=== PATIENT | female | born 1940 | race Caucasian/White ===

== ENCOUNTER → 2023-12-22 13:50 | Outpatient (REF) | payer MEDICARE, SELFPAY ==
[2023-12-22 15:40] LABS: Hematocrit 38.1 % (37.0-47.0); Hemoglobin 12.7 g/dL (12.0-16.0); Mean Corp Hgb Conc. 33.3 g/dL (33.0-37.0); Mean Corpuscular Hgb 31.9 pg (27.0-31.0); Mean Corpuscular Volume 95.7 fL (81.0-99.0); Mean Platelet Volume 9.9 fL (7.4-10.4); Platelet Count 212 10^3/uL (130-400); Red Blood Cell Count 3.98 10^6/uL (4.20-5.40); Red Cell Dist. Width 14.8 % (11.5-14.5); White Blood Cell Count 12.8 10^3/uL (4.8-10.8)
[2023-12-22 15:49] LABS: ALT (SGPT) 130 U/L (0-35); AST (SGOT) 74 U/L (14-36); Albumin 3.3 g/dl (3.5-5.0); Alkaline Phosphatase 452 U/L (38-126); Blood Urea Nitrogen 34 mg/dl (7-17); Calcium 9.1 mg/dl (8.4-10.2); Carbon Dioxide 26 mmol/L (22-30); Chloride 104 mmol/L (98-107); Glucose 99 mg/dl (70-99); Sodium 138 mmol/L (135-145); Total Bilirubin 2.4 mg/dl (0.2-1.3); Total Protein 5.7 g/dl (6.3-8.2); eGFR > 60.00
[2023-12-22 16:30] LABS: TSH 0.64 uIU/ml (0.47-4.68)
== END ==
LOC: OLABMERCHI 13:50
PROVIDERS: ATTENDING PHYSICIAN Nurse Practitioner Gerontology; FAMILY PHYSICIAN Hospitalist
DX: N39.0 Urinary tract infection, site not specified (principal); D64.9 Anemia, unspecified; R94.4 Abnormal results of kidney function studies; G03.9 Meningitis, unspecified
CPT/HCPCS: 36415; 80053; 84439; 84443; 85027

== ENCOUNTER → 2023-12-29 09:27 | Outpatient (REF) | payer MEDICARE, SELFPAY ==
[2023-12-29 11:19] LABS: Ammonia 10 umol/L (9-30)
[2023-12-29 11:40] LABS: ALT (SGPT) 160 U/L (0-35); AST (SGOT) 103 U/L (14-36); Albumin 3.2 g/dl (3.5-5.0); Alkaline Phosphatase 841 U/L (38-126); Blood Urea Nitrogen 18 mg/dl (7-17); Calcium 8.9 mg/dl (8.4-10.2); Carbon Dioxide 27 mmol/L (22-30); Chloride 102 mmol/L (98-107); Glucose 97 mg/dl (70-99); Potassium 3.4 mmol/L (3.5-5.1); Sodium 136 mmol/L (135-145); Total Bilirubin 2.2 mg/dl (0.2-1.3); Total Protein 5.9 g/dl (6.3-8.2); eGFR > 60.00
== END ==
LOC: OLABMERCHI 09:27
PROVIDERS: ATTENDING PHYSICIAN Nurse Practitioner Gerontology; FAMILY PHYSICIAN Hospitalist
DX: R94.4 Abnormal results of kidney function studies (principal); R94.5 Abnormal results of liver function studies
CPT/HCPCS: 36415; 80053; 82140

== ENCOUNTER → 2024-02-02 11:53 | Outpatient (REF) | payer MEDICARE, SELFPAY ==
[2024-02-02 12:49] LABS: % Basophils 0.4 % (0-2); % Eosinophils 2.4 % (0-6); % Immature Granulocytes 1.2 % (0-0.5); % Lymphocytes 20.8 % (20.5-51.1); % Monocytes 10.1 % (1.7-9.3); % Neutrophils 65.1 % (42.2-75.2); Absolute Eosinophils 0.2 10^3/uL (0-0.7); Absolute Immature Granulocytes 0.1 10^3/uL (0-0.05); Absolute Lymphocytes 1.7 10^3/uL (1.2-3.4); Absolute Monocytes 0.8 10^3/uL (0.1-0.6); Absolute Neutrophils 5.4 10^3/uL (1.4-6.5); Hematocrit 39.2 % (37.0-47.0); Hemoglobin 12.8 g/dL (12.0-16.0); Mean Corp Hgb Conc. 32.7 g/dL (33.0-37.0); Mean Corpuscular Hgb 31.2 pg (27.0-31.0); Mean Corpuscular Volume 95.6 fL (81.0-99.0); Mean Platelet Volume 10.9 fL (7.4-10.4); Nucleated Red Blood Cells % 0 %; Platelet Count 221 10^3/uL (130-400); Red Cell Dist. Width 15.1 % (11.5-14.5); White Blood Cell Count 8.2 10^3/uL (4.8-10.8)
[2024-02-02 13:25] LABS: ALT (SGPT) 44 U/L (0-35); AST (SGOT) 41 U/L (14-36); Albumin 3.2 g/dl (3.5-5.0); Alkaline Phosphatase 780 U/L (38-126); Blood Urea Nitrogen 10 mg/dl (7-17); Calcium 8.9 mg/dl (8.4-10.2); Carbon Dioxide 30 mmol/L (22-30); Chloride 101 mmol/L (98-107); Glucose 110 mg/dl (70-99); Potassium 3.8 mmol/L (3.5-5.1); Sodium 138 mmol/L (135-145); Total Bilirubin 1.4 mg/dl (0.2-1.3); eGFR > 60.00
== END ==
LOC: OLABMERCHI 11:53
PROVIDERS: ATTENDING PHYSICIAN Nurse Practitioner Gerontology; FAMILY PHYSICIAN Hospitalist
DX: R94.4 Abnormal results of kidney function studies (principal)
CPT/HCPCS: 36415; 80053; 85025

== ENCOUNTER → 2024-02-16 10:28 | Outpatient (REF) | payer MEDICARE, SELFPAY ==
[2024-02-16 11:56] LABS: ALT (SGPT) 28 U/L (0-35); AST (SGOT) 38 U/L (14-36); Alkaline Phosphatase 265 U/L (38-126); Blood Urea Nitrogen 12 mg/dl (7-17); Calcium 8.9 mg/dl (8.4-10.2); Carbon Dioxide 27 mmol/L (22-30); Chloride 104 mmol/L (98-107); Glucose 93 mg/dl (70-99); Potassium 3.5 mmol/L (3.5-5.1); Sodium 138 mmol/L (135-145); Total Bilirubin 0.9 mg/dl (0.2-1.3); Total Protein 5.2 g/dl (6.3-8.2); eGFR > 60.00
== END ==
LOC: OLABMERCHI 10:28
PROVIDERS: ATTENDING PHYSICIAN Hospitalist
DX: R74.01 Elevation of levels of liver transaminase levels (principal)
CPT/HCPCS: 36415; 80053

== ENCOUNTER → 2024-11-29 09:44 | Outpatient (REF) | payer MEDICARE, SELFPAY ==
[2024-11-29 11:44] LABS: % Basophils 0.5 % (0-2); % Eosinophils 2.5 % (0-6); % Immature Granulocytes 0.2 % (0-0.5); % Lymphocytes 31.4 % (20.5-51.1); % Monocytes 10.9 % (1.7-9.3); % Neutrophils 54.5 % (42.2-75.2); Absolute Eosinophils 0.1 10^3/uL (0-0.7); Absolute Lymphocytes 1.4 10^3/uL (1.2-3.4); Absolute Monocytes 0.5 10^3/uL (0.1-0.6); Absolute Neutrophils 2.4 10^3/uL (1.4-6.5); Hematocrit 40.6 % (37.0-47.0); Hemoglobin 13.6 g/dL (12.0-16.0); Mean Corp Hgb Conc. 33.5 g/dL (33.0-37.0); Mean Corpuscular Hgb 32.9 pg (27.0-31.0); Mean Corpuscular Volume 98.3 fL (81.0-99.0); Mean Platelet Volume 10.2 fL (7.4-10.4); Nucleated Red Blood Cells % 0 %; Platelet Count 87 10^3/uL (130-400); Red Blood Cell Count 4.13 10^6/uL (4.20-5.40); Red Cell Dist. Width 12.6 % (11.5-14.5); White Blood Cell Count 4.4 10^3/uL (4.8-10.8)
[2024-11-29 11:55] LABS: ALT (SGPT) 17 U/L (0-35); AST (SGOT) 21 U/L (14-36); Albumin 3.2 g/dl (3.5-5.0); Alkaline Phosphatase 93 U/L (38-126); Blood Urea Nitrogen 14 mg/dl (7-17); Carbon Dioxide 31 mmol/L (22-30); Chloride 108 mmol/L (98-107); Glucose 93 mg/dl (70-99); HDL Cholesterol 44 mg/dl; Iron 92 ug/dl (37-170); LDL Cholesterol, Calculated 70 mg/dl; Magnesium 2.3 mg/dl (1.6-2.3); Potassium 4.3 mmol/L (3.5-5.1); Sodium 143 mmol/L (135-145); Total Bilirubin 0.6 mg/dl (0.2-1.3); Total Cholesterol 136 mg/dl (50-199); Total Protein 5.3 g/dl (6.3-8.2); Triglyceride 113 mg/dl (10-149); Very Low Density Lipoprotein 22 mg/dl (0-30); eGFR > 60.00
[2024-11-29 12:03] LABS: NT-proBNP 252 pg/ml
[2024-11-29 12:07] LABS: Vitamin D, 25-OH*** 40.4 ng/mL (30-80)
[2024-11-29 12:21] LABS: TSH 1.26 uIU/ml (0.47-4.68)
[2024-11-29 12:40] LABS: Vitamin B12 323 pg/ml (239-931)
[2024-11-29 13:34] LABS: Glycohemoglobin (HgbA1c) 5.4 % (4.0-5.6)
== END ==
LOC: OLABMERCHI 09:44
PROVIDERS: ATTENDING PHYSICIAN Hospitalist
DX: I10 Essential (primary) hypertension (principal); Z79.899 Other long term (current) drug therapy; K30 Functional dyspepsia; J44.9 Chronic obstructive pulmonary disease, unspecified; E78.5 Hyperlipidemia, unspecified; E61.1 Iron deficiency; K44.9 Diaphragmatic hernia without obstruction or gangrene; F32.0 Major depressive disorder, single episode, mild; F03.90 Unspecified dementia, unspecified severity, without behavioral disturbance, psychotic disturbance, mood disturbance, and anxiety; R32 Unspecified urinary incontinence; Z91.81 History of falling; R26.2 Difficulty in walking, not elsewhere classified
CPT/HCPCS: 36415; 80053; 80061; 82306; 82607; 83036; 83540; 83735; 83880; 84443; 85025

== ENCOUNTER 2024-12-17 09:41 | Emergency (ER) | payer MEDICARE, SELFPAY ==
[2024-12-17 10:00] VITALS: BP 145/75
[2024-12-17 10:01] LABS: % Basophils 0.4 % (0-2); % Eosinophils 0.9 % (0-6); % Immature Granulocytes 0.5 % (0-0.5); % Lymphocytes 15.8 % (20.5-51.1); % Monocytes 8.2 % (1.7-9.3); % Neutrophils 74.2 % (42.2-75.2); Absolute Eosinophils 0.1 10^3/uL (0-0.7); Absolute Lymphocytes 1.2 10^3/uL (1.2-3.4); Absolute Monocytes 0.6 10^3/uL (0.1-0.6); Absolute Neutrophils 5.7 10^3/uL (1.4-6.5); Hematocrit 43.5 % (37.0-47.0); Mean Corp Hgb Conc. 34.5 g/dL (33.0-37.0); Mean Corpuscular Hgb 33.2 pg (27.0-31.0); Mean Corpuscular Volume 96.2 fL (81.0-99.0); Mean Platelet Volume 8.3 fL (7.4-10.4); Nucleated Red Blood Cells % 0 %; Platelet Count 175 10^3/uL (130-400); Red Blood Cell Count 4.52 10^6/uL (4.20-5.40); Red Cell Dist. Width 12.7 % (11.5-14.5); White Blood Cell Count 7.7 10^3/uL (4.8-10.8)
--- NOTE | 2024-12-17 10:11 | ED.GENMED ---
History of Present Illness
General
Chief Complaint: Fall
Source: patient
Exam Limitations: none
Time Seen by Provider: 12/17/24 09:57
History of Present Illness
History of Present Illness:
84-year-old female presents from [facility] via EMS after an unwitnessed fall. She lives in a dementia unit. She denies any injury from the fall. She is not sure what happened. She currently denies any headache neck pain chest pain abdominal
pain or shortness of breath. No other complaints
Phy Exam
Physical Exam
Physical Exam:
General: Well-appearing female no acute respiratory distress
HEENT: Normocephalic atraumatic
Heart: Regular rate and rhythm
Lungs: Clear no wheeze
Musculoskeletal exam: The spine is nontender
Abdomen is soft nontender nondistended no guarding or rebound
Extremities: No cyanosis
Course
Orders/Labs/Results
Orders:
Orders
12/17/24 09:49
CRP [C-Reactive Protein] Urgent
Complete Blood Count/With Diff Urgent
Comprehensive Metabolic Panel Urgent
Creatine Phosphokinase Urgent
12/17/24 10:11
CT Head W/o Iv Contrast Urgent
Comment:
Reason For Exam: fall
12/17/24 10:13
Add On- LAB Urgent
Tests Added?: cpk
Abnormal Lab Results
12/17/24
09:49
MCH 33.2 H pg
(27.0-31.0)
Lymphocytes % 15.8 L %
(20.5-51.1)
Creatinine 0.5 L mg/dL
(0.6-1.0)
Glucose 112 H mg/dl
(70-99)
Total Protein 6.0 L g/dl
(6.3-8.2)
12/17/24 09:49
12/17/24 09:49
Vital Signs
Initial and Last Documented VS:
Initial Vital Signs
Pulse Ox
93
12/17/24 09:48
Last Documented Vital Signs
Temp Pulse Resp BP Pulse Ox
97.7 F 59 16 145/75 94
12/17/24 10:14 12/17/24 10:14 12/17/24 10:14 12/17/24 10:14 12/17/24 10:14
MDM/Problems Addressed
Differential Diagnosis Includes:
Unwitnessed fall from assisted. No apparent injury. Patient does not recall event. Basic labs pending CT head pending.
*Critical Care Note
Total Time (30-74mins, 75-104mins- exclusive of procedures): Not Applicable
Update Note
Update Note:
Workup shows negative CAT scan. Labs reviewed without significant finding. Family now in the room. No indication for admission. Daughter willing to take her back to [facility].
ED Attending Note
-
Portions of this chart may have been created with voice recognition software.� Occasional wrong word or��sound alike� substitutions may have occurred due to the inherent limitations of voice recognition software.
Discharge Plan
Departure
Patient Disposition: Home (Routine Discharge)
Date of Disposition: 12/17/24
Time of Disposition: 11:12
Patient with high blood pressure during this ER visit?: No
Discharge Problem:
Fall
Instructions: Preventing falls - ED discharge instructions
Prescriptions:
No Action
carvedilol 12.5 mg Tablet
12.5 mg PO BID
famotidine 40 mg Tablet
40 mg PO DAILY
omeprazole 40 mg Capsule,Delayed Release(Dr/Ec)
40 mg PO DAILY
acetaminophen 500 mg Tablet
1,000 mg PO BID
simvastatin 20 mg Tablet
20 mg PO DAILY
ferrous sulfate 325 mg (65 mg iron) Tablet
325 mg PO DAILY
furosemide 20 mg Tablet
20 mg PO DAILY
Trelegy Ellipta 200-62.5-25 mcg Blister With Device
1 inh INHALATION DAILY
Referrals:
Leslie Sanchez, [Family Provider] -
Activity Restrictions/Additional Instructions:
Please return here if needed
Interventions
Interventions:
*Risk Screen - Suicide Last Done: 12/17/24 10:14
*General Assessment Last Done: 12/17/24 10:14
*Neglect/Abuse Screening Last Done: 12/17/24 10:14
*ED- Fall Risk Assessment Last Done: 12/17/24 10:14
*ED COVID-19 Vaccine History Last Done: 12/17/24 10:14
ED-Musculoskeletal Assessment Last Done: 12/17/24 10:14
ED- Neurological Assessment Last Done: 12/17/24 10:14
ED-Skin Assessment Last Done: 12/17/24 10:14
Discharge Date and Time
Print Language: MACEDONIAN
[2024-12-17 10:14] VITALS: BP 145/75; BMI 29.4
[2024-12-17 10:15] LABS: ALT (SGPT) 21 U/L (0-35); AST (SGOT) 25 U/L (14-36); Albumin 3.7 g/dl (3.5-5.0); Alkaline Phosphatase 99 U/L (38-126); Blood Urea Nitrogen 16 mg/dl (7-17); Calcium 9.2 mg/dl (8.4-10.2); Carbon Dioxide 28 mmol/L (22-30); Chloride 106 mmol/L (98-107); Glucose 112 mg/dl (70-99); Potassium 4.3 mmol/L (3.5-5.1); Sodium 141 mmol/L (135-145); Total Bilirubin 0.8 mg/dl (0.2-1.3); eGFR > 60.00
[2024-12-17 10:17] LABS: C-Reactive Protein < 5.00 mg/L (0.0-10.00)
[2024-12-17 10:51] LABS: Creatine Phosphokinase 56 U/L (30-135)
== END 2024-12-17 11:43 | disposition home or self-care (01) ==
LOC: EMR 09:41
PROVIDERS: EMERGENCY PHYSICIAN Emergency Medicine; FAMILY PHYSICIAN Hospitalist
DX: Z04.3 Encounter for examination and observation following other accident (principal); W19.XXXA Unspecified fall, initial encounter
CPT/HCPCS: 99284; 70450; 80053; 82550; 85025; 86140

== ENCOUNTER 2025-05-01 07:39 | Emergency (ER) | payer MEDICARE, SELFPAY ==
[2025-05-01 07:53] VITALS: BP 145/67; BMI 31.7
[2025-05-01 08:00] VITALS: BP 147/69
--- NOTE | 2025-05-01 08:20 | ED.GENMED ---
History of Present Illness
General
Chief Complaint: Fall
Source: records
Exam Limitations: dementia
Time Seen by Provider: 05/01/25 08:13
History of Present Illness
History of Present Illness:
Unwitnessed fall. Found for an extra bed with her mattress on top of her. Initially apparently was complaining of some bilateral leg pain which is chronic and has complained of before. Currently has no specific complaints and does not know what
happened.
Past History
Past History
ED Past Medical History: HTN and Other (Dementia)
Review of Systems
Review of Systems
Unable to obtain full review of systems at this time due to: dementia
All Other Systems: Not applicable
Phy Exam
Physical Exam
Physical Exam:
TRAUMA EXAM:
VITAL SIGNS: Vital signs reviewed, cooperative
DISTRESS: No active disease
EYES: Pupils reactive, no orbital trauma
NOSE: No deformity or epistaxis
FACE AND SCALP: No scalp or facial trauma, external canals no blood
NECK: Supple nontender
BACK: Back nontender, pelvis stable to compression
RESPIRATORY: No distress, breath sounds normal, no tender chest wall
CARDIAC: No murmur, pulses equal and strong
ABDOMEN: Soft nontender bowel sounds normal
SKIN: Skin intact. Small ecchymosis to the right arm and dorsal left hand
NEUROLOGICAL: Alert, oriented to name and place. Fairly close on age, no motor deficits
PSYCH: Mood affect normal
Course
Orders/Labs/Results
Orders:
Orders
05/01/25 08:17
Cardiac Monitoring- Treatment ONCE
05/01/25 08:18
CT Cervical Spine W/o Iv Contr Urgent
Comment:
Reason For Exam: trauma
CT Head W/o Iv Contrast Urgent
Comment:
Reason For Exam: traum,a
Vital Signs
Initial and Last Documented VS:
Initial Vital Signs
Temp Pulse Resp BP Pulse Ox
98.4 F 58 19 145/67 93
05/01/25 07:53 05/01/25 07:53 05/01/25 07:53 05/01/25 07:53 05/01/25 07:53
Last Documented Vital Signs
Temp Pulse Resp BP Pulse Ox
98.4 F 77 21 137/77 95
05/01/25 07:53 05/01/25 11:00 05/01/25 11:00 05/01/25 11:00 05/01/25 11:00
MDM/Problems Addressed
Differential Diagnosis Includes:
Patient very nontoxic in no distress. Clinically stable. Highly doubt syncope. No signs of significant trauma. However given the unknown nature of what exactly occurred we will CT her head and cervical spine.
*Radiology
Radiology exam reviewed: radiology read reviewed (Negative acute findings)
*Pulse Oximetry
SaO2: 93
Oxygen Mode of Delivery: Room air
Patient hypoxic: no
*Tip Out Worker Interpretation
Rate: normal
Interpretation: normal
Heart Rate: 80
Rhythm: sinus
*Critical Care Note
Total Time (30-74mins, 75-104mins- exclusive of procedures): Not Applicable
Data Reviewed
Review of Other/Old Records Reveals: Labs, Records and Testing
Update Note
Update Note:
Patient is remained medically stable. No serious issues. Discharged to follow-up
ED Attending Note
-
Portions of this chart may have been created with voice recognition software.� Occasional wrong word or��sound alike� substitutions may have occurred due to the inherent limitations of voice recognition software.
Discharge Plan
Departure
Patient Disposition: Home (Routine Discharge)
Date of Disposition: 05/01/25
Time of Disposition: 11:20
Patient with high blood pressure during this ER visit?: Yes
Discharge Problem:
Fall, Mild contusions, Possible mild head injury
Instructions: Head Injury in Adults (DC), Contusion (DC), Preventing falls in adults
Prescriptions:
No Action
carvedilol 12.5 mg Tablet
12.5 mg PO BID
famotidine 40 mg Tablet
40 mg PO DAILY
omeprazole 40 mg Capsule,Delayed Release(Dr/Ec)
40 mg PO DAILY
acetaminophen 500 mg Tablet
1,000 mg PO BID
simvastatin 20 mg Tablet
20 mg PO DAILY
ferrous sulfate 325 mg (65 mg iron) Tablet
325 mg PO DAILY
furosemide 20 mg Tablet
20 mg PO DAILY
Trelegy Ellipta 200-62.5-25 mcg Blister With Device
1 inh INHALATION DAILY
Referrals:
JERILYN DE LA GARZA CRNP [Family Provider, Family Practice] - Follow up in 2-3 days
Interventions
Interventions:
*Risk Screen - Suicide Last Done: 05/01/25 07:53
*General Assessment Last Done: 05/01/25 07:53
*Neglect/Abuse Screening Last Done: 05/01/25 07:53
*ED- Fall Risk Assessment Last Done: 05/01/25 07:53
*ED COVID-19 Vaccine History Last Done: 05/01/25 07:53
ED-Musculoskeletal Assessment Last Done: 05/01/25 07:53
ED- Neurological Assessment Last Done: 05/01/25 07:53
ED-Skin Assessment Last Done: 05/01/25 07:53
Discharge Date and Time
Print Language: ITALIAN
[2025-05-01 10:43] VITALS: BP 154/88
[2025-05-01 11:00] VITALS: BP 137/77
--- NOTE | 2025-05-01 13:01 | EDRN ---
the pt is being discharged and transport has been arranged, this RN attempted to call [facility] at [phone] to give verbal report to receiving staff at [facility] and the frontload driver staff transferred this RN to the floor that the pt was on
and there was no answer
[2025-05-01 13:02] VITALS: BP 131/85
[2025-05-01 13:43] VITALS: BP 131/85
== END 2025-05-01 13:48 ==
LOC: EMR 07:39
PROVIDERS: EMERGENCY PHYSICIAN Emergency Medicine
DX: S40.021A Contusion of right upper arm, initial encounter (principal); S60.222A Contusion of left hand, initial encounter; F03.90 Unspecified dementia, unspecified severity, without behavioral disturbance, psychotic disturbance, mood disturbance, and anxiety; I10 Essential (primary) hypertension; M79.605 Pain in left leg; M79.604 Pain in right leg; G89.29 Other chronic pain; W19.XXXA Unspecified fall, initial encounter; Y92.099 Unspecified place in other non-institutional residence as the place of occurrence of the external cause
CPT/HCPCS: 99284; 70450; 72125

== ENCOUNTER → 2025-06-20 11:48 | Outpatient (REF) | payer MEDICARE, SELFPAY ==
[2025-06-20 12:40] LABS: ALT (SGPT) 15 U/L (0-35); AST (SGOT) 19 U/L (14-36); Albumin 3.4 g/dl (3.5-5.0); Alkaline Phosphatase 79 U/L (38-126); Blood Urea Nitrogen 16 mg/dl (7-17); Calcium 8.6 mg/dl (8.4-10.2); Carbon Dioxide 30 mmol/L (22-30); Chloride 106 mmol/L (98-107); Glucose 86 mg/dl (70-99); Potassium 4.0 mmol/L (3.5-5.1); Sodium 136 mmol/L (135-145); Total Protein 5.7 g/dl (6.3-8.2); eGFR > 60.00
[2025-06-20 12:45] LABS: Hematocrit 40.1 % (37.0-47.0); Hemoglobin 13.2 g/dL (12.0-16.0); Mean Corp Hgb Conc. 32.9 g/dL (33.0-37.0); Mean Corpuscular Volume 97.8 fL (81.0-99.0); Platelet Count 142 10^3/uL (130-400); Red Cell Dist. Width 12.6 % (11.5-14.5)
== END ==
LOC: OLABMERCHI 11:48
PROVIDERS: ATTENDING PHYSICIAN Hospitalist
DX: R41.82 Altered mental status, unspecified (principal)
CPT/HCPCS: 36415; 80053; 85027

== ENCOUNTER → 2025-06-21 11:22 | Outpatient (REF) | payer MEDICARE, SELFPAY ==
[2025-06-21 14:06] LABS: Urine Character Slightly Cloudy (Clear)
== END ==
LOC: OLABMERCHI 11:22
PROVIDERS: ATTENDING PHYSICIAN Hospitalist
DX: R41.82 Altered mental status, unspecified (principal)
CPT/HCPCS: 81003; 87077; 87086; 87186

== ENCOUNTER 2025-07-02 18:32 | Inpatient (IN) | payer MEDICARE, SELFPAY ==
[2025-07-02] VITALS (7 sets, daily range): BP systolic 133–148; BP diastolic 76–98; BMI 34.1; BMI 34.3
[2025-07-02 13:09] LABS: Hematocrit 48.0 % (37.0-47.0); Hemoglobin 16.1 g/dL (12.0-16.0); Mean Corp Hgb Conc. 33.5 g/dL (33.0-37.0); Mean Corpuscular Volume 98.0 fL (81.0-99.0); Nucleated Red Blood Cells % 0 %; Platelet Count 201 10^3/uL (130-400); Red Cell Dist. Width 13.1 % (11.5-14.5)
[2025-07-02 13:49] LABS: ALT (SGPT) 22 U/L (0-35); AST (SGOT) 26 U/L (14-36); Albumin 4.6 g/dl (3.5-5.0); Alkaline Phosphatase 91 U/L (38-126); Blood Urea Nitrogen 19 mg/dl (7-17); Calcium 9.4 mg/dl (8.4-10.2); Carbon Dioxide 31 mmol/L (22-30); Chloride 99 mmol/L (98-107); Glucose 138 mg/dl (70-99); Potassium 4.0 mmol/L (3.5-5.1); Sodium 137 mmol/L (135-145); Total Protein 7.4 g/dl (6.3-8.2); eGFR > 60.00
--- NOTE | 2025-07-02 14:56 | ED.GENMED ---
History of Present Illness
<Josh Long MD, Resident - Last Filed: 07/02/25 16:45>
General
Chief Complaint: Abdominal Symptoms
Source: patient and records (EMS)
Time Seen by Provider: 07/02/25 14:29
History of Present Illness
History of Present Illness:
Patient is an 85-year-old female with PMH of COPD, HTN, HLD, and dementia who presents to [facility] via EMS from [facility] for 2 episodes of vomiting this morning. Patient is a poor historian and does not recall vomiting. She is chronically
short of breath related to her COPD, but she has had no recent worsening. No other symptoms, including abdominal pain, nausea, chest pain, cough, wheezing, changes to bowel movements, headache, vision changes, or urinary symptoms.
Past History
<Josh Long MD, Resident - Last Filed: 07/02/25 16:45>
Past History
ED Past Medical History: COPD, HTN, Hypercholesterolemia and Other (Dementia)
Social History
Tobacco: Former smoker
Living: snf
Review of Systems
<Josh Long MD, Resident - Last Filed: 07/02/25 16:45>
Review of Systems
Constitutional: Denies fever, fatigue or chills
Respiratory: Reports trouble breathing (Chronic, no recent changes); Denies cough
Cardiac: Denies chest pain
ABD/GI: Denies abdominal pain, nausea, vomiting or diarrhea
: Denies dysuria, frequency or urgency
Neurological: Denies headache, weakness or numbness
Phy Exam
<Josh Long MD, Resident - Last Filed: 07/02/25 16:45>
Physical Exam
Physical Exam:
General: NAD. Easily communicative.
GI: Soft, nontender. Nondistended. No rigidity, guarding, or rebound tenderness. Stage II sacral pressure ulcer. Left lower abdominal intertriginous area erythema and foul odor.
CV: RRR. S1, S2 noted. No M/R/G. Bilateral lower extremity 3+ pitting edema.
Pulm: CTAB. No wheezes or crackles. No cyanosis.
Neuro: A&O x 2. Disoriented to time. No focal deficits. CN II through XII grossly intact.
Psych: Pleasant. Struggles with memory.
Course
<Josh Long MD, Resident - Last Filed: 07/02/25 16:45>
Orders/Labs/Results
Orders:
Orders
07/02/25 13:02
Complete Blood Count/With Diff Urgent
Comprehensive Metabolic Panel Urgent
07/02/25 15:24
Straight cath- Treatment ONCE
CR Obstruct Series W/pa Chest Urgent
Comment:
Reason For Exam: vomiting
07/02/25 15:38
Urinalysis Reflex To Culture Urgent
Date Specimen was Collected: 07/02/25
Time Specimen was Collected: 15:26
Urine Microscopic Reflex Cult Urgent
Urine Culture Urgent
JEREMY Source: U
Specimen Description:
Date Specimen was Collected: 07/02/25
Time Specimen was Collected: 15:26
07/02/25 16:43
CT Abd/pelvis W Iv Cont Urgent
Comment:
Reason For Exam: vomiting
07/02/25 18:04
NG Tube [GI tube insertion- Treatment] ONCE
07/02/25 18:11
Admit/Transfer Patient As Directed
Co-Sign Provider:
Level of Care: Inpatient admission
Assign to:: Medical/Surgical
Physician / Group: kristina
Diagnosis: paraesophageal hernia gastric outlet obstruction
Reason for Hospitalization: paraesophageal hernia gastric outlet obstruction
Expected length of stay greater than two midnights?: Yes
ELOS- Estimated Length of Stay in days: 2
I certify the patient meets the requirements for IP care: Yes
Code Status As Directed
Resuscitation Status: Full Code
PRN Pain Medication Management As Directed
May give lesser potent ordered pain med per pt: Yes
preference::
Protocol:: Medication orders for pain may be administered in a
manner that supports deferring to patient preference
when the pt is:
- Requesting an ordered lesser potent pain medication.
Least to most potent pain medications are defined
as: acetaminophen < NSAID < tramadol < opioids
(morphine, oxycodone, hydromorphone).
- Requesting a lesser dose of the same medication IF
ORDERED.
- Requesting a less intrusive route of administration
if both routes are prescribed by the provider (PO <
IV).
Abnormal Lab Results
07/02/25 07/02/25
13:02 15:38
WBC 13.6 H 10^3/uL
(4.8-10.8)
Hgb 16.1 H g/dL
(12.0-16.0)
Hct 48.0 H %
(37.0-47.0)
MCH 32.9 H pg
(27.0-31.0)
Abs Immat Gran (auto) 0.1 H 10^3/uL
(0-0.05)
Absolute Neuts (auto) 11.4 H 10^3/uL
(1.4-6.5)
Absolute Monos (auto) 1.0 H 10^3/uL
(0.1-0.6)
Neutrophils % 83.8 H %
(42.2-75.2)
Lymphocytes % 8.7 L %
(20.5-51.1)
Carbon Dioxide 31 H mmol/L
(22-30)
BUN 19 H mg/dl
(7-17)
Glucose 138 H mg/dl
(70-99)
Urine Ketones 3+ A
(Negative)
Ur Occult Blood Reflex 4+ A
(Negative)
Urine RBC 50-60 A /HPF
(0-2)
Urine Bacteria (Reflex) Moderate A
(Negative)
Urine Albumin (Reflex) 2+ A
(Neg - Trace)
07/02/25 13:02
07/02/25 13:02
Vital Signs
Initial and Last Documented VS:
Initial Vital Signs
Temp Pulse Resp BP Pulse Ox
98.3 F 110 16 148/98 94
07/02/25 12:53 07/02/25 12:53 07/02/25 12:53 07/02/25 12:53 07/02/25 12:53
Last Documented Vital Signs
Temp Pulse Resp BP Pulse Ox
98.3 F 92 25 140/79 94
07/02/25 12:53 07/02/25 16:00 07/02/25 16:00 07/02/25 16:00 07/02/25 18:00
<Bertram Grover, DO - Last Filed: 07/02/25 20:07>
Orders/Labs/Results
Orders:
Orders
07/02/25 13:02
Complete Blood Count/With Diff Urgent
Comprehensive Metabolic Panel Urgent
07/02/25 15:24
Straight cath- Treatment ONCE
CR Obstruct Series W/pa Chest Urgent
Comment:
Reason For Exam: vomiting
07/02/25 15:38
Urinalysis Reflex To Culture Urgent
Date Specimen was Collected: 07/02/25
Time Specimen was Collected: 15:26
Urine Microscopic Reflex Cult Urgent
Urine Culture Urgent
JEREMY Source: U
Specimen Description:
Date Specimen was Collected: 07/02/25
Time Specimen was Collected: 15:26
07/02/25 16:43
CT Abd/pelvis W Iv Cont Urgent
Comment:
Reason For Exam: vomiting
07/02/25 18:04
NG Tube [GI tube insertion- Treatment] ONCE
07/02/25 18:11
Admit/Transfer Patient As Directed
Co-Sign Provider:
Level of Care: Inpatient admission
Assign to:: Medical/Surgical
Physician / Group: kristina
Diagnosis: paraesophageal hernia gastric outlet obstruction
Reason for Hospitalization: paraesophageal hernia gastric outlet obstruction
Expected length of stay greater than two midnights?: Yes
ELOS- Estimated Length of Stay in days: 2
I certify the patient meets the requirements for IP care: Yes
Code Status As Directed
Resuscitation Status: Full Code
PRN Pain Medication Management As Directed
May give lesser potent ordered pain med per pt: Yes
preference::
Protocol:: Medication orders for pain may be administered in a
manner that supports deferring to patient preference
when the pt is:
- Requesting an ordered lesser potent pain medication.
Least to most potent pain medications are defined
as: acetaminophen < NSAID < tramadol < opioids
(morphine, oxycodone, hydromorphone).
- Requesting a lesser dose of the same medication IF
ORDERED.
- Requesting a less intrusive route of administration
if both routes are prescribed by the provider (PO <
IV).
Abnormal Lab Results
07/02/25 07/02/25
13:02 15:38
WBC 13.6 H 10^3/uL
(4.8-10.8)
Hgb 16.1 H g/dL
(12.0-16.0)
Hct 48.0 H %
(37.0-47.0)
MCH 32.9 H pg
(27.0-31.0)
Abs Immat Gran (auto) 0.1 H 10^3/uL
(0-0.05)
Absolute Neuts (auto) 11.4 H 10^3/uL
(1.4-6.5)
Absolute Monos (auto) 1.0 H 10^3/uL
(0.1-0.6)
Neutrophils % 83.8 H %
(42.2-75.2)
Lymphocytes % 8.7 L %
(20.5-51.1)
Carbon Dioxide 31 H mmol/L
(22-30)
BUN 19 H mg/dl
(7-17)
Glucose 138 H mg/dl
(70-99)
Urine Ketones 3+ A
(Negative)
Ur Occult Blood Reflex 4+ A
(Negative)
Urine RBC 50-60 A /HPF
(0-2)
Urine Bacteria (Reflex) Moderate A
(Negative)
Urine Albumin (Reflex) 2+ A
(Neg - Trace)
07/02/25 13:02
07/02/25 13:02
Vital Signs
Initial and Last Documented VS:
Initial Vital Signs
Temp Pulse Resp BP Pulse Ox
98.3 F 110 16 148/98 94
07/02/25 12:53 07/02/25 12:53 07/02/25 12:53 07/02/25 12:53 07/02/25 12:53
Last Documented Vital Signs
Temp Pulse Resp BP Pulse Ox
98.3 F 92 25 140/79 94
07/02/25 12:53 07/02/25 16:00 07/02/25 16:00 07/02/25 16:00 07/02/25 18:00
<Josh Long MD, Resident - Last Filed: 07/02/25 16:45>
MDM/Problems Addressed
Differential Diagnosis Includes:
Intertrigo
Gastroenteritis
Small bowel obstruction
MDM/Problems Addressed:
Assessment: Patient is an 85-year-old female with PMH of HTN, HLD, COPD, and dementia who presents to the [facility] via EMS from [facility] following 2 episodes of vomiting this morning, per report. Patient currently has no symptoms other
than chronic shortness of breath. No abdominal pain, nausea, diarrhea, chest pain, headache, or F/F/C. Physical exam shows bilateral lower extremity pitting edema, left lower abdominal intertriginous edema and foul smell, and stage II sacral
pressure ulcer. Tachycardic on presentation, mild leukocytosis (13.6). Workup ongoing.
Plan:
#Vomiting
Labs: CBC, CMP, UA
Imaging: Obstruction series x-ray, CTAP w/ IV contrast
<Josh Long MD, Resident - Last Filed: 07/02/25 16:45>
*Pulse Oximetry
SaO2: 96
Oxygen Mode of Delivery: Room air
Patient hypoxic: yes
*Critical Care Note
Total Time (30-74mins, 75-104mins- exclusive of procedures): Not Applicable
<Bertram Grover, - Last Filed: 07/02/25 20:07>
*Radiology
Radiology exam reviewed: radiology read reviewed (CT abdomen pelvis shows gastric outlet obstruction due to paraesophageal hiatal hernia)
ED Attending Note
<Josh Long MD, Resident - Last Filed: 07/02/25 16:45>
-
Portions of this chart may have been created with voice recognition software.� Occasional wrong word or��sound alike� substitutions may have occurred due to the inherent limitations of voice recognition software.
<Bertram Grover DO - Last Filed: 07/02/25 20:07>
ED Attending Note
Patient seen and examined by attending physician: Yes
I performed a history and physical exam of patient and discussed management with resident, I reviewed resident's note and agree with documented findings and plan of care.: Yes
ED Attending Note:
I have reviewed and agree with history treatment plan by Dr. Josh Long MD. My exam revealed 85-year-old female with mildly distended abdomen. Patient with multiple vomiting episodes today. Abdomen soft nontender. CT scan showing
paraesophageal hiatal hernia with gastric outlet obstruction. Will insert NG tube. General surgery consulted.
Discharge Plan
Departure
Patient Disposition: Admit
Date of Disposition: 07/02/25
Time of Disposition: 17:57
Admit to: Med/Surg
Presentation/result/management discussed w/ accepting MD/DO: Hospitalist
Patient with high blood pressure during this ER visit?: Yes
Condition: Fair
Discharge Problem:
Gastric outlet obstruction, Paraesophageal hiatal hernia
Interventions
Interventions:
*Risk Screen - Suicide Last Done: 07/02/25 12:53
*General Assessment Last Done: 07/02/25 14:44
*Neglect/Abuse Screening Last Done: 07/02/25 12:53
*ED- Fall Risk Assessment Last Done: 07/02/25 14:44
*ED COVID-19 Vaccine History Last Done: 07/02/25 14:47
*ED Influenza Vaccine History Last Done: 07/02/25 14:44
OJ-Uslaie-Hpioduiykp Assessment Last Done: 07/02/25 14:47
[2025-07-02 15:55] LABS: Urine Character Clear (Clear)
[2025-07-02 16:15] LABS: Urine Red Blood Cell 50-60 /HPF (0-2); Urine White Cell 0-2 /HPF (0-5)
--- NOTE | 2025-07-02 18:14 | HPS.HSE ---
Family Physician
-
Family Physician: CARINA HUMPHREY
Chief Complaint
-
vomiting
History of Present Illness
85-year-old female past medical history of COPD, hypertension, hyperlipidemia, dementia presenting for 2 episodes of vomiting this morning. She has chronic shortness of breath related to COPD which is not worse. Denies abdominal pain, chest pain,
wheezing, changes in bowels, headache, vision changes or urinary symptoms. Patient very poor historian secondary to dementia but denies any symptoms. She thinks she is at home.
Denies smoking or alcohol use.
Medical History
Past Medical History
Past Medical History: Reports Other (COPD, hypertension, hyperlipidemia, dementia)
Past Surgical History: Reports None
Social History
Tobacco: Non-smoker
Alcohol: None
Drug: None
Family History
Family History: Not pertinent
Allergies / Home Medications
Allergies reflects when Allergies were last updated in [employer].
Home Medications with original date entered in [employer]
Allergy/Medication List:
Allergies
Allergy/AdvReac Type Severity Reaction Status Date / Time
Penicillins Allergy Severe Shortness Verified 12/17/24 10:44
of Breath
Home Medications
acetaminophen 500 mg tablet 1,000 mg PO BID hip pain 12/17/24
carvedilol 12.5 mg tablet 12.5 mg PO BID 12/17/24
famotidine 40 mg tablet 40 mg PO DAILY 12/17/24
ferrous sulfate 325 mg (65 mg iron) tablet 325 mg PO DAILY 12/17/24
fluticasone fur. 200 mcg-umeclid 62.5 mcg-vilant 25 mcg inhalat.powder (Trelegy Ellipta) 1 inh inhalation DAILY 12/17/24
furosemide 20 mg tablet 20 mg PO DAILY 12/17/24
omeprazole 40 mg capsule,delayed release 40 mg PO DAILY 12/17/24
simvastatin 20 mg tablet 20 mg PO DAILY 12/17/24
Review of Systems
-
Unable to obtain full review of systems at this time due to: Dementia
A 12 point ROS was completed and negative except as noted: No
Physical Exam
Vital Signs
Vital Signs
Temp Pulse Resp BP Pulse Ox
98.3 F 92 25 140/79 93
07/02/25 12:53 07/02/25 16:00 07/02/25 16:00 07/02/25 16:00 07/02/25 17:00
Physical Exam
General: Well Developed, Well Nourished and No Apparent Distress
HEENT: NormoCephalic, Moist mucous membranes and Atraumatic
Respiratory: Clear
Cardiac: S1/S2 and Regular Rhythm; No Murmur or Rub
GI: Soft, Non Distended, Normal Bowel Sounds, Tender (diffusely ) and Distended; No Organomegaly
Rectal: Deferred by Provider
Musculoskeletal: No Clubbing, No Cyanosis and No Edema
Skin: No Rash
Neuro: Nonfocal/grossly intact
Laboratory Results
-
07/02/25 13:02
07/02/25 13:02
Laboratory Results
Total Bilirubin 1.0 mg/dl (0.2-1.3) 07/02/25 13:02
AST 26 U/L (14-36) 07/02/25 13:02
ALT 22 U/L (0-35) 07/02/25 13:02
Alkaline Phosphatase 91 U/L (38-126) 07/02/25 13:02
Data Reviewed
-
Lab Data: Labs Reviewed by me
Old Records: Reviewed
Impression/Plan
-
IMPRESSION:
PLAN:
# Large paraesophageal hiatal hernia causing gastric outlet obstruction
-CT abdomen pelvis shows large paraesophageal hiatal hernia causing gastric outlet obstruction, minimal fluid in the hiatal hernia sac,
- N.p.o.
- IV fluids
-Hold Lasix
- NG tube to be placed
- General Surgery consulted plan for surgery tomorrow or the next day
Solid mass in upper outer quadrant of right breast
- Probably right breast cancer as per CT imaging
COPD
- DuoNebs as needed
Essential hypertension
-Hold Coreg
Hyperlipidemia
- Hold statin
Dementia
Full code
DVT prophylaxis�SCDs
Heparin
--- NOTE | 2025-07-02 20:04 | EDRN ---
Attempted NG tube placement. Patient did not tolerate and began vomiting during insertion. Patient refusing further attempts. AIR BRAKE ADJUSTER notified
--- NOTE | 2025-07-02 20:59 | EDRN ---
successfully placed NG tube to Left nare. 420ml brown gastric contents out.
[2025-07-02] MEDS: DILAUDID 0.5 MG IV (21:02)
[2025-07-02] MEDS: ZOFRAN 4 MG IV (21:02)
[2025-07-02] MEDS: NSS 1000 IV (22:23)
[2025-07-02] MEDS: HEPARIN 5000 UNITS SC (22:27)
[2025-07-03 08:00] VITALS: BP 113/66
--- NOTE | 2025-07-03 08:01 | W.PN.HOSP.TC ---
Today's Communication/Plan
-
Pending NG tube suction, patient will need surgery possible early next week
Assessment / Plan
Assessment / Plan
Impression:
85-year-old female past medical history of COPD, hypertension, hyperlipidemia, dementia presenting for 2 episodes of vomiting this morning. She has chronic shortness of breath related to COPD which is not worse. Denies abdominal pain, chest pain,
wheezing, changes in bowels, headache, vision changes or urinary symptoms. Patient very poor historian secondary to dementia , CT abdomen pelvis shows large paraesophageal hiatal hernia causing gastric outlet obstruction, minimal fluid in the
hiatal hernia sac, patient kept n.p.o., surgery consulted.
Status post NG tube
Assessment/plan:
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
CT abdomen/pelvis shows large paraesophageal hiatal hernia causing gastric outlet obstruction with minimal fluid in the hernia sac.
Management:
Kepp NPO (nothing by mouth)
IV fluids
Hold Lasix
NG tube placement to suction
General Surgery consulted.
Solid Mass in Right Breast (Upper Outer Quadrant)
Imaging suggests probable right breast cancer per CT findings.
Chronic Obstructive Pulmonary Disease (COPD)
DuoNebs PRN (as needed)
Essential Hypertension
Hold Coreg for now
Hyperlipidemia
Hold statin
Dementia
At baseline.
CODE STATUS: Full code
DVT prophylaxis: Heparin
Diet: N.p.o.
Disposition: Pending NG tube suction, patient will need surgery possible early next week.
Total time spent on today's encounter was 55 minutes which included time spent in counseling the patient/family regarding diagnosis and treatment plan as listed above, goals of care, and symptom management. Case was discussed with nursing staff,
specialists, and care coordinators/case management. All labs and imaging personally reviewed by me. Remainder the time spent in detailed review of previous records, lab data, imaging, and other medical provider documentation.
Anticipated Discharge: > 48 hours
Subjective/Interval History
-
Date of Service: July 03, 2025
Patient seen and examined at bedside, NG tube in place, denies any chest pain or shortness of breath.
Objective Data
-
Labs:
Laboratory Results
07/03/25
06:00
WBC Pending
Hgb Pending
Hct Pending
Plt Count Pending
Vital Signs:
Vital Signs
Temp Pulse Resp BP Pulse Ox
98.7 F 89 18 140/77 93
07/02/25 23:35 07/02/25 23:35 07/02/25 23:35 07/02/25 23:35 07/02/25 23:35
I&O
07/02/25 07/03/25 07/04/25
06:59 06:59 06:59
Intake Total 120 / 120 90 / 90
Output Total 650 / 650
Balance -530 / -530 90 / 90
Physical Exam
-
General: Well Developed, Well Nourished, No Apparent Distress and Comfortable
HEENT: Normocephalic, Atraumatic, Moist Mucous Membranes, No Ptosis, PERRLA, Nose Appears Normal and Other (NG tube in place,)
Respiratory: Rales and Non Labored Respirations
Cardiac: Regular Rhythm and S1/S2
Breast: Deferred by me
GI: Soft, Nontender, Nondistended and Normal Bowel Sounds
Genito-urinary: No Costovertebral Tender
Musculoskeletal: No Clubbing, No Cyanosis and No Edema
Skin: Warm
Neuro: Awake, Alert, Oriented, AO x 3 and No Motor Deficits
Psych: Calm and Confused
Data Reviewed
-
Diagnostic Radiology: Image personally visualized and interpreted and Report Reviewed by me
CT Scan: Image personally visualized and interpreted and Report Reviewed by me
Ultrasound: Image personally visualized and interpreted and Report Reviewed by me
MRI: Image personally visualized and interpreted and Report Reviewed by me
Medical Tests (Nuc Med, Echo etc): Image personally visualized and interpreted and Report Reviewed by me
Labs: Labs Reviewed by me
Old Records: Reviewed
[2025-07-03] MEDS: NSS 1000 IV ×2 (08:06→17:35)
[2025-07-03] MEDS: HEPARIN 5000 UNITS SC ×2 (08:07→20:02)
[2025-07-03 08:43] LABS: Hematocrit 39.0 % (37.0-47.0); Hemoglobin 12.9 g/dL (12.0-16.0); Mean Corp Hgb Conc. 33.1 g/dL (33.0-37.0); Mean Corpuscular Volume 98.0 fL (81.0-99.0); Nucleated Red Blood Cells % 0 %; Platelet Count 178 10^3/uL (130-400); Red Cell Dist. Width 13.3 % (11.5-14.5)
--- NOTE | 2025-07-03 11:15 | CON.GS ---
Consultation
-
Date/Time Consultation Requested: 07/02/2025 10 PM
Date/Time Consultation Performed: 07/03/2025 9 AM
Requesting Provider: Hospitalist
Performing Provider: Dr. Baker
Reason for Consultation: Hiatal hernia
Medical History
-
Chief Complaint: nausea vomiting.
History of Present Illness:
This is an 85-year-old female with a history of COPD, hypertension, dementia presenting with 2 episodes of vomiting yesterday along with some shortness of breath. Physical exam was fairly unremarkable and her blood work was also reassuring. A CT
scan demonstrated a large hiatal hernia with organoaxial volvulus and a corresponding gastric outlet obstruction. An NG tube was eventually placed successfully.
Past Medical History
Past Medical History: Other
Past Surgical History: None
Social History
Tobacco: Non-Smoker
Alcohol: None
Allergies / Home Medications
Allergy/AdvReac Type Severity Reaction Status Date / Time
Penicillins Allergy Shortness Verified 07/02/25 20:58
of Breath
�Medication �Instructions �Recorded �Confirmed �Type
acetaminophen 500 mg tablet 1,000 mg PO BID hip pain 12/17/24 05/01/25 History
carvedilol 12.5 mg tablet 12.5 mg PO BID Blood Pressure 12/17/24 05/01/25 History
famotidine 40 mg tablet 40 mg PO DAILY Gastrointestinal 12/17/24 05/01/25 History
Issue
ferrous sulfate 325 mg (65 mg 325 mg PO DAILY Supplement 12/17/24 05/01/25 History
iron) tablet
fluticasone fur. 200 mcg-umeclid 1 inh inhalation DAILY 12/17/24 05/01/25 History
62.5 mcg-vilant 25 mcg Lung/Breathing Issues
inhalat.powder (Trelegy Ellipta)
furosemide 20 mg tablet 20 mg PO DAILY Fluid 12/17/24 05/01/25 History
Retention/Swelling
omeprazole 40 mg capsule,delayed 40 mg PO DAILY GERD 12/17/24 05/01/25 History
release
simvastatin 20 mg tablet 20 mg PO DAILY High Cholesterol 12/17/24 05/01/25 History
Review of Systems
-
A 10 point review of systems was completed, and was negative except as per HPI.
Physical Exam
Vital Signs
Temp Pulse Resp BP Pulse Ox
97.1 F 89 16 113/66 94
07/03/25 08:00 07/03/25 08:00 07/03/25 08:00 07/03/25 08:00 07/03/25 08:00
07/02/25 07/03/25 07/04/25
06:59 06:59 06:59
Actual Weight 84.935 kg
Body Mass Index (BMI) 34.3
Lab Results
07/03/25 08:28
07/02/25 13:02
WBC 8.6 10^3/uL (4.8-10.8) 07/03/25 08:28
Hgb 12.9 g/dL (12.0-16.0) 07/03/25 08:28
Hct 39.0 % (37.0-47.0) 07/03/25 08:28
Plt Count 178 10^3/uL (130-400) 07/03/25 08:28
Abs Immat Gran (auto) 0.0 10^3/uL (0-0.05) 07/03/25 08:28
Neutrophils % 70.5 % (42.2-75.2) 07/03/25 08:28
Physical Exam
General: Well Developed
HEENT: Normocephalic
Respiratory: Non Labored Respirations
GI: Soft, Non Tender, Non Distended, Obese and Other (NG tube with dark maroon output.)
Data Reviewed
-
CT Scan: Image Personally Visualized and interpreted, Report Reviewed by me, Discussed with Physician and Discussed with Patient
Labs: Labs Reviewed by me
Total Time Spent with Patient (in minutes): 25
Assessment / Plan
-
This is an 85-year-old female with a history of significant dementia, COPD who presents from her assisted living facility ([facility]) with nausea and vomiting. Much of her history was obtained from her daughter Clemencia who can be reached at
[phone]. Please note that this number was incorrectly entered in the EMR as [id number].
Had a lengthy discussion with the daughter regarding surgical options, primarily laparoscopic gastropexy versus laparoscopic hiatal hernia repair. After discussion of risk benefits and alternatives she favors the former.
She also indicated that the patient is DNR/DNI and would not want heroic measures performed and would prefer to pass away naturally for this arise. She is okay to waive this perioperatively.
N.p.o., IV fluids.
Chest x-ray to confirm NG tube placement. Continue to low intermittent wall suction.
PPI.
Will plan for surgery early next week to allow for the edema to dissipate and appropriately restratify the patient prior to surgery.
I spent 80 minutes in total for the care of this patient today including direct patient care and counseling, reviewing labs, imaging, coordination of care, as well as documentation.
[2025-07-03] MEDS: NSS (PRESERVATIVE FREE) 10 ML IV (12:37)
[2025-07-03] MEDS: PROTONIX IV 40 MG IV (12:37)
--- NOTE | 2025-07-03 16:55 | CM ---
Patient was admitted from [facility] personal snf, paint is independent with adl's and ambulation, patient currently with NGT will await PT/OT evaluations and assist with discharge planning needs.
PCP: Ada Mancuso
Plan; Back to [facility] when stable.
[2025-07-03 17:17] VITALS: BP 147/79
[2025-07-03] MEDS: DESENEX/MITRAZOL/ZEASORB 1 APPLIC TOPICAL (20:01)
--- NOTE | 2025-07-03 20:40 | W.PN.UPDATE ---
Update Note
Progress Note Update
~ 19:00 during bedside shift report, RN's noted that NG tube came out, NG tube replaced, portable cxr ordered to confirm placement. Order placed for B/L mitts.
~ Midnight - reported that patient is taking b/l mitts off, ordered soft limb restraints b/l.
[2025-07-03 23:31] VITALS: BP 139/76
--- NOTE | 2025-07-04 04:51 | PTCARENOTE ---
Upon bedside shift report with reporting nurse, pt was found to have NG tube removed from nare and on bed. Pt was AAOx1-2, pleasantly confused (baseline). TELEPHONE INFORMATION SUPERVISOR notified. NG tube placed. Chest xray confirmed placement in expected area. Pt attempted to
remove IV and NG tube multiple times. Pt given soft mitts. Three RNs attempted at different times to place mitts. Pt continuously removed mitts. Pt placed in soft limb wrist restraints/4 rails. Pt cooperative.
[2025-07-04] MEDS: NSS 1000 IV (05:51)
[2025-07-04 07:40] LABS: Hematocrit 33.9 % (37.0-47.0); Hemoglobin 11.2 g/dL (12.0-16.0); Mean Corp Hgb Conc. 33.0 g/dL (33.0-37.0); Mean Corpuscular Volume 98.0 fL (81.0-99.0); Platelet Count 147 10^3/uL (130-400); Red Cell Dist. Width 13.2 % (11.5-14.5)
[2025-07-04 08:02] LABS: Blood Urea Nitrogen 23 mg/dl (7-17); Calcium 8.2 mg/dl (8.4-10.2); Carbon Dioxide 31 mmol/L (22-30); Chloride 107 mmol/L (98-107); Estimated Creatinine Clearance 67 ml/min; Glucose 82 mg/dl (70-99); Potassium 3.5 mmol/L (3.5-5.1); Sodium 141 mmol/L (135-145); eGFR > 60.00
[2025-07-04] MEDS: HEPARIN 5000 UNITS SC ×2 (08:34→20:12)
[2025-07-04] MEDS: PROTONIX IV 40 MG IV (08:35)
[2025-07-04] MEDS: NSS (PRESERVATIVE FREE) 10 ML IV (08:35)
[2025-07-04 08:37] VITALS: BP 125/79
[2025-07-04] MEDS: DESENEX/MITRAZOL/ZEASORB 1 APPLIC TOPICAL ×2 (08:43→20:12)
--- NOTE | 2025-07-04 10:52 | W.PN.GS2 ---
Today's Communication / Plan
-
`
Assessment / Plan
-
Assessment/Plan: 85-year-old female admitted with acute gastric outlet obstruction secondary to large paraesophageal hernia
Clinically stable, no signs of immediate gastric threat (ischemia/perforation)
Maintain NG tube decompression
Continue PPI
Consideration for laparoscopic reduction/gastropexy but conservative management at this point.
Subjective Data
-
Date of Service: July 04, 2025
Patient seen and examined.
Sleeping comfortably. Did not awaken patient during evaluation.
Objective Data
-
Intake and Output
07/03/25 07/04/25 07/05/25
06:59 06:59 06:59
Intake Total 120 / 120 2580 / 2580 1200 / 1200
Output Total 650 / 650 175 / 175 540 / 540
Balance -530 / -530 2405 / 2405 660 / 660
Intake:
Oral fluids 120 / 120
IV fluids (Total) 2400 / 2400 1200 / 1200
Amount instilled into GI Tube ( 180 / 180
Total)
[place] Sump 180 / 180
Output:
Gastrointestinal tube output ( 650 / 650 175 / 175
Total)
[place] Sump 650 / 650 175 / 175
Straight cath output 540 / 540
Other:
How many times incontinent 1
SMALL amount urine
How many times incontinent 1
SATURATED amount urine
Number of approximated MODERATE 2
amounts of urine
Vital Signs
Temp Pulse Resp BP Pulse Ox
97.8 F 82 16 125/79 94
07/04/25 08:37 07/04/25 08:37 07/04/25 08:37 07/04/25 08:37 07/04/25 08:37
Lab Results
07/04/25 06:41
07/04/25 06:41
Calcium 8.2 mg/dl (8.4-10.2) L 07/04/25 06:41
Total Bilirubin 1.0 mg/dl (0.2-1.3) 07/02/25 13:02
AST 26 U/L (14-36) 07/02/25 13:02
ALT 22 U/L (0-35) 07/02/25 13:02
Alkaline Phosphatase 91 U/L (38-126) 07/02/25 13:02
Total Protein 7.4 g/dl (6.3-8.2) 07/02/25 13:02
Albumin 4.6 g/dl (3.5-5.0) 07/02/25 13:02
Physical Exam
-
NAD, sleeping
NG tube in place with dark gastric contents within canister
ABD: Soft nondistended no tenderness elicited during palpation
--- NOTE | 2025-07-04 13:27 | W.PN.HOSP.TC ---
Today's Communication/Plan
-
Continue NG tube suction, if surgery indicated will be early next week.
Assessment / Plan
Assessment / Plan
Impression:
85-year-old female past medical history of COPD, hypertension, hyperlipidemia, dementia presenting for 2 episodes of vomiting this morning. She has chronic shortness of breath related to COPD which is not worse. Denies abdominal pain, chest pain,
wheezing, changes in bowels, headache, vision changes or urinary symptoms. Patient very poor historian secondary to dementia , CT abdomen pelvis shows large paraesophageal hiatal hernia causing gastric outlet obstruction, minimal fluid in the
hiatal hernia sac, patient kept n.p.o., surgery consulted.
Status post NG tube
Assessment/plan:
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
CT abdomen/pelvis shows large paraesophageal hiatal hernia causing gastric outlet obstruction with minimal fluid in the hernia sac.
Management:
Kepp NPO (nothing by mouth)
IV fluids
Hold Lasix
NG tube placement to suction
General Surgery consulted.
Follow surgery recommendation regarding surgical intervention versus continue conservative management.
Solid Mass in Right Breast (Upper Outer Quadrant)
Imaging suggests probable right breast cancer per CT findings.
Chronic Obstructive Pulmonary Disease (COPD)
DuoNebs PRN (as needed)
Essential Hypertension
Hold Coreg for now
Hyperlipidemia
Hold statin
Acute metabolic encephalopathy.
Hospital delirium/underlying dementia
Continue restraints
CODE STATUS: Full code
DVT prophylaxis: Heparin
Diet: N.p.o.
Disposition: Continue NG tube suction, if surgery indicated will be early next week.
Total time spent on today's encounter was 55 minutes which included time spent in counseling the patient/family regarding diagnosis and treatment plan as listed above, goals of care, and symptom management. Case was discussed with nursing staff,
specialists, and care coordinators/case management. All labs and imaging personally reviewed by me. Remainder the time spent in detailed review of previous records, lab data, imaging, and other medical provider documentation.
Anticipated Discharge: > 48 hours
Subjective/Interval History
-
Date of Service: July 04, 2025
Results of agitations overnight to remove the NG tube, which has been replaced patient currently on soft restraints
Objective Data
-
Labs:
Laboratory Results
07/04/25
06:41
WBC 5.2
Hgb 11.2 L
Hct 33.9 L
Plt Count 147
Sodium 141
Potassium 3.5
Chloride 107
Carbon Dioxide 31 H
BUN 23 H
Creatinine 0.6
Glucose 82
Calcium 8.2 L
Vital Signs:
Vital Signs
Temp Pulse Resp BP Pulse Ox
97.8 F 82 16 125/79 94
07/04/25 08:37 07/04/25 08:37 07/04/25 08:37 07/04/25 08:37 07/04/25 08:37
I&O
07/03/25 07/04/25 07/05/25
06:59 06:59 06:59
Intake Total 120 / 120 2580 / 2580 1200 / 1200
Output Total 650 / 650 175 / 175 540 / 540
Balance -530 / -530 2405 / 2405 660 / 660
Physical Exam
-
General: Well Developed
HEENT: Normocephalic, Atraumatic, Moist Mucous Membranes, No Ptosis, PERRLA, Nose Appears Normal and Other (NG tube in place,)
Respiratory: Rales and Non Labored Respirations
Cardiac: Regular Rhythm and S1/S2
Breast: Deferred by me
GI: Soft, Nontender, Nondistended and Normal Bowel Sounds
Genito-urinary: No Costovertebral Tender
Musculoskeletal: No Clubbing, No Cyanosis and No Edema
Skin: Warm
Neuro: Awake, Alert, Oriented, AO x 3 and No Motor Deficits
Psych: Calm, Confused and Other (Restrained)
[2025-07-04 15:00] VITALS: BP 133/76
[2025-07-04] MEDS: D5/0.9% SODIUM CHLORIDE 1000 IV (15:45)
--- NOTE | 2025-07-04 16:42 | CM ---
Chart reviewed still with NGT, possible surgery next week. Plan is to return to [facility]
Plan; Return to [facility] care when stable, patient has a walker at facility.
--- NOTE | 2025-07-04 18:40 | PTCARENOTE ---
Addendum entered by Elsa Camilo RN 07/04/25 18:40:
pt does not ring donya, wrong pt. bed alarm in place, rounding in place.
Original Note:
Assumed care of pt from previous nurse. Pt with no output, greatest bladder scan output since bladder scan this a.m. is 74. will cont bladder scan protocol. Pt call moran is within reach, pt rings donya. will cont to monitor.
[2025-07-04 23:34] VITALS: BP 141/71
[2025-07-05] MEDS: D5/0.9% SODIUM CHLORIDE 1000 IV ×2 (04:04→18:36)
[2025-07-05 07:33] VITALS: BP 142/79
--- NOTE | 2025-07-05 08:30 | W.PN.GS2 ---
Today's Communication / Plan
-
NG to decompression
Assessment / Plan
-
Assessment/Plan: 85-year-old female admitted with acute gastric outlet obstruction secondary to large paraesophageal hernia
Clinically stable, no signs of immediate gastric threat (ischemia/perforation)
Maintain NG tube decompression
Continue PPI
Will plan for laparoscopic gastropexy on Tuesday after allowing sufficient amount of time for the swelling in the stomach to subside. Family updated and agreeable to plan of care.
General surgery will follow peripherally.
Time Spent
Total Time Spent with Patient (in minutes): 20
Subjective Data
-
Date of Service: July 05, 2025
Interval Events:
No acute events overnight. Patient in restraints. offers no complaints at this time.
Objective Data
-
Intake and Output
07/04/25 07/05/25 07/06/25
06:59 06:59 06:59
Intake Total 2580 / 2580 2460 / 2460
Output Total 175 / 175 540 / 540
Balance 2405 / 2405 1920 / 1920
Intake:
IV fluids (Total) 2400 / 2400 2280 / 2280
Amount instilled into GI Tube ( 180 / 180 180 / 180
Total)
[place] Sump 180 / 180 180 / 180
Output:
Gastrointestinal tube output ( 175 / 175 0 / 0
Total)
[place] Sump 175 / 175 0 / 0
Straight cath output 540 / 540
Other:
How many times incontinent 1
SMALL amount urine
How many times incontinent 1
MODERATE amount urine
How many times incontinent 1 2
SATURATED amount urine
Vital Signs
Temp Pulse Resp BP Pulse Ox
98.4 F 76 17 142/79 97
07/05/25 07:33 07/05/25 07:33 07/05/25 07:33 07/05/25 07:33 07/05/25 07:33
Calcium 8.2 mg/dl (8.4-10.2) L 07/04/25 06:41
Total Bilirubin 1.0 mg/dl (0.2-1.3) 07/02/25 13:02
AST 26 U/L (14-36) 07/02/25 13:02
ALT 22 U/L (0-35) 07/02/25 13:02
Alkaline Phosphatase 91 U/L (38-126) 07/02/25 13:02
Total Protein 7.4 g/dl (6.3-8.2) 07/02/25 13:02
Albumin 4.6 g/dl (3.5-5.0) 07/02/25 13:02
Physical Exam
-
GENERAL/NEURO: Awake, Alert, no distress
CHEST: Unlabored breathing on RA
ABDOMEN: Soft, Non-Tender, Non-Distended, NG tube with dark maroon output
Patient has a central line: No
[2025-07-05] MEDS: DESENEX/MITRAZOL/ZEASORB 1 APPLIC TOPICAL ×2 (08:59→19:53)
[2025-07-05] MEDS: HEPARIN 5000 UNITS SC ×2 (09:05→19:52)
[2025-07-05] MEDS: PROTONIX IV 40 MG IV (09:06)
[2025-07-05] MEDS: NSS (PRESERVATIVE FREE) 10 ML IV (09:06)
[2025-07-05 09:14] LABS: Hematocrit 35.5 % (37.0-47.0); Hemoglobin 11.5 g/dL (12.0-16.0); Mean Corp Hgb Conc. 32.4 g/dL (33.0-37.0); Mean Corpuscular Volume 104.1 fL (81.0-99.0); Platelet Count 147 10^3/uL (130-400); Red Cell Dist. Width 12.7 % (11.5-14.5)
[2025-07-05 09:37] LABS: Blood Urea Nitrogen 14 mg/dl (7-17); Calcium 8.0 mg/dl (8.4-10.2); Carbon Dioxide 30 mmol/L (22-30); Chloride 107 mmol/L (98-107); Estimated Creatinine Clearance 67 ml/min; Glucose 102 mg/dl (70-99); Potassium 3.3 mmol/L (3.5-5.1); Sodium 140 mmol/L (135-145); eGFR > 60.00
[2025-07-05] MEDS: SPIRIVA RESPIMAT 2.5 MCG INH (12:11)
[2025-07-05] MEDS: SYMBICORT 160/4.5 MCG INHALER INH (12:11)
--- NOTE | 2025-07-05 13:04 | W.PN.HOSP.TC ---
Today's Communication/Plan
-
Monitor vitals
See plan
Continue with NG tube
Start Trelegy
DuoNeb as needed
Med rec, discussed with RN
Monitor mental status
Assessment / Plan
Assessment / Plan
Impression:
85-year-old female past medical history of COPD, hypertension, hyperlipidemia, dementia presenting for 2 episodes of vomiting this morning. She has chronic shortness of breath related to COPD which is not worse. Denies abdominal pain, chest pain,
wheezing, changes in bowels, headache, vision changes or urinary symptoms. Patient very poor historian secondary to dementia , CT abdomen pelvis shows large paraesophageal hiatal hernia causing gastric outlet obstruction, minimal fluid in the
hiatal hernia sac, patient kept n.p.o., surgery consulted.
Status post NG tube
Assessment/plan:
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
CT abdomen/pelvis shows large paraesophageal hiatal hernia causing gastric outlet obstruction with minimal fluid in the hernia sac.
Management:
NPO
cw IV fluids, gentle hydration
Hold Lasix; monitor volume status closely. Might need dose intermittently
NG tube placement to suction
General Surgery following. Possible plan for laparoscopic gastropexy on Tuesday
Follow surgery recommendation regarding surgical intervention versus continue conservative management.
Solid Mass in Right Breast (Upper Outer Quadrant)
Imaging suggests probable right breast cancer per CT findings.
Chronic Obstructive Pulmonary Disease (COPD)
DuoNebs PRN
Takes Trelegy, continue
Essential Hypertension
Hold Coreg for now
add hydralazine PRN
Hyperlipidemia
Hold statin
Acute metabolic encephalopathy
Hospital delirium with underlying dementia
Continue restraints
CODE STATUS: Full code
DVT prophylaxis: Heparin
Diet: N.p.o.
Disposition: Continue NG tube suction, if surgery indicated will be early next week.
General: Well Developed
HEENT: Normocephalic, Atraumatic, Moist Mucous Membranes, No Ptosis, PERRLA, Nose Appears Normal and Other (NG tube in place,)
Respiratory: Rales and Non Labored Respirations
Cardiac: Regular Rhythm and S1/S2
GI: Soft, Nontender, Nondistended and Normal Bowel Sounds
Musculoskeletal: No Edema
Neuro: Awake, Alert, Oriented, AO x 3 and No Motor Deficits
Psych: Calm, mild Confused and Other (Restrained)
Anticipated Discharge: > 48 hours
Subjective/Interval History
-
Date of Service: July 05, 2025
denies pain
Objective Data
-
Labs:
Laboratory Results
07/05/25
08:19
WBC 5.3
Hgb 11.5 L
Hct 35.5 L
Plt Count 147
Sodium 140
Potassium 3.3 L
Chloride 107
Carbon Dioxide 30
BUN 14
Creatinine 0.5 L
Glucose 102 H
Calcium 8.0 L
Vital Signs:
Vital Signs
Temp Pulse Resp BP Pulse Ox
98.4 F 76 17 142/79 97
07/05/25 07:33 07/05/25 07:33 07/05/25 07:33 07/05/25 07:33 07/05/25 12:12
I&O
07/04/25 07/05/25 07/06/25
06:59 06:59 06:59
Intake Total 2580 / 2580 2460 / 2460
Output Total 175 / 175 540 / 540
Balance 2405 / 2405 1920 / 1920
[2025-07-05 14:45] VITALS: BMI 34.3
[2025-07-05 15:09] VITALS: BP 158/75
--- NOTE | 2025-07-05 16:42 | CM ---
Patient still with NGT, await updates and plan for patient.
Plan; To follow with patient progress.
[2025-07-05] MEDS: SYMBICORT 160/4.5 MCG INHALER 2 PUFF INH (20:56)
[2025-07-05 23:25] VITALS: BP 142/49
[2025-07-06] MEDS: D5/0.9% SODIUM CHLORIDE 1000 IV (05:51)
[2025-07-06 06:47] LABS: Hematocrit 35.2 % (37.0-47.0); Hemoglobin 12.0 g/dL (12.0-16.0); Mean Corp Hgb Conc. 34.1 g/dL (33.0-37.0); Mean Corpuscular Volume 95.7 fL (81.0-99.0); Platelet Count 168 10^3/uL (130-400); Red Cell Dist. Width 12.4 % (11.5-14.5)
[2025-07-06 07:06] VITALS: BP 151/82
[2025-07-06 07:14] LABS: Blood Urea Nitrogen 9 mg/dl (7-17); Calcium 8.0 mg/dl (8.4-10.2); Carbon Dioxide 28 mmol/L (22-30); Chloride 107 mmol/L (98-107); Estimated Creatinine Clearance 67 ml/min; Glucose 107 mg/dl (70-99); Potassium 3.0 mmol/L (3.5-5.1); Sodium 140 mmol/L (135-145); eGFR > 60.00
[2025-07-06] MEDS: SYMBICORT 160/4.5 MCG INHALER 2 PUFF INH ×2 (07:50→20:33)
[2025-07-06] MEDS: SPIRIVA RESPIMAT 2.5 MCG 2 PUFF INH (07:51)
[2025-07-06] MEDS: PROTONIX IV 40 MG IV (09:46)
[2025-07-06] MEDS: HEPARIN 5000 UNITS SC ×2 (09:46→20:14)
[2025-07-06] MEDS: NSS (PRESERVATIVE FREE) 10 ML IV (09:47)
[2025-07-06] MEDS: KCL 270 MEQ IV ×2 (09:47→15:56)
[2025-07-06] MEDS: DESENEX/MITRAZOL/ZEASORB 1 APPLIC TOPICAL ×2 (09:53→20:15)
--- NOTE | 2025-07-06 13:00 | W.PN.GS2 ---
Addendum entered and electronically signed by Jersey Vizcarra MD 07/06/25 14:56:
Patient pleasant, confused, oriented to self.
Tolerating NG tube in place with soft restraints.
Denies abdominal pain
AFVSS
ABD: No tenderness on palpation, mildly distended
A/P: 85-year-old female with gastric outlet obstruction secondary to large paraesophageal hernia
Stable with NG tube decompression
Patient is tentatively on OR schedule for Tuesday for laparoscopic gastropexy
Original Note:
Today's Communication / Plan
-
laparoscopic gastropexy on Tuesday
continue ngt
Assessment / Plan
-
Assessment/Plan: 85-year-old female admitted with acute gastric outlet obstruction secondary to large paraesophageal hernia
WBC: 5.8, RBC 12.0. Vitals normal.
-Clinically stable, no signs of immediate gastric threat (ischemia/perforation)
-Maintain NG tube decompression - put out 180ml
-Continue PPI
-Will plan for laparoscopic gastropexy on Tuesday after allowing sufficient amount of time for the swelling in the stomach to subside. Family updated and agreeable to plan of care.
-General surgery will follow peripherally.
Subjective Data
-
Date of Service: July 06, 2025
Patient states she has no pain. She just has mild tenderness. Denies nausea or vomiting.
Objective Data
-
Intake and Output
07/05/25 07/06/25 07/07/25
06:59 06:59 06:59
Intake Total 2460 / 2460 0 / 0
Output Total 540 / 540
Balance 1920 / 1920 0 / 0
Intake:
Oral fluids 0 / 0
IV fluids (Total) 2280 / 2280
Amount instilled into GI Tube ( 180 / 180
Total)
[place] Sump 180 / 180
Output:
Gastrointestinal tube output ( 0 / 0
Total)
[place] Sump 0 / 0
Straight cath output 540 / 540
Other:
How many times incontinent 1 2
MODERATE amount urine
How many times incontinent 2 1
SATURATED amount urine
Vital Signs
Temp Pulse Resp BP Pulse Ox
97.5 F 72 14 151/82 96
07/06/25 07:06 07/06/25 07:52 07/06/25 07:52 07/06/25 07:06 07/06/25 07:52
Lab Results
07/06/25 05:48
07/06/25 05:48
Calcium 8.0 mg/dl (8.4-10.2) L 07/06/25 05:48
Total Bilirubin 1.0 mg/dl (0.2-1.3) 07/02/25 13:02
AST 26 U/L (14-36) 07/02/25 13:02
ALT 22 U/L (0-35) 07/02/25 13:02
Alkaline Phosphatase 91 U/L (38-126) 07/02/25 13:02
Total Protein 7.4 g/dl (6.3-8.2) 07/02/25 13:02
Albumin 4.6 g/dl (3.5-5.0) 07/02/25 13:02
Physical Exam
-
GENERAL/NEURO: Awake, Alert, no distress
ABDOMEN: Soft, mildly tender throughout, Non-Distended, NG tube with dark output
Patient has a central line: No
--- NOTE | 2025-07-06 13:55 | W.PN.HOSP.TC ---
Today's Communication/Plan
-
Monitor vital signs and see plan
Continue with NG tube per surgery recommendation
Plan for laparoscopic gastropexy on Tuesday
Replete potassium
Assessment / Plan
Assessment / Plan
Impression:
85-year-old female past medical history of COPD, hypertension, hyperlipidemia, dementia presenting for 2 episodes of vomiting this morning. She has chronic shortness of breath related to COPD which is not worse. Denies abdominal pain, chest pain,
wheezing, changes in bowels, headache, vision changes or urinary symptoms. Patient very poor historian secondary to dementia , CT abdomen pelvis shows large paraesophageal hiatal hernia causing gastric outlet obstruction, minimal fluid in the
hiatal hernia sac, patient kept n.p.o., surgery consulted.
Status post NG tube
Assessment/plan:
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
CT abdomen/pelvis shows large paraesophageal hiatal hernia causing gastric outlet obstruction with minimal fluid in the hernia sac.
Management:
NPO
cw IV fluids, gentle hydration
Hold Lasix; monitor volume status closely. Might need dose intermittently
NG tube placement to suction
General Surgery following. Possible plan for laparoscopic gastropexy on Tuesday
Follow surgery recommendation regarding surgical intervention versus continue conservative management.
Solid Mass in Right Breast (Upper Outer Quadrant)
Imaging suggests probable right breast cancer per CT findings.
Chronic Obstructive Pulmonary Disease (COPD)
DuoNebs PRN
Takes Trelegy, continue
Essential Hypertension
Hold Coreg for now
add hydralazine PRN
Hyperlipidemia
Hold statin
Hypokalemia
Replete
Acute metabolic encephalopathy
Hospital delirium with underlying dementia, delirium appears to be getting better
Continue restraints
CODE STATUS: Full code
DVT prophylaxis: Heparin
Diet: N.p.o.
Disposition: Continue NG tube suction, if surgery indicated will be early next week.
General: Well Developed
HEENT: Normocephalic, Atraumatic, Moist Mucous Membranes, No Ptosis, PERRLA, Nose Appears Normal and Other (NG tube in place,)
Respiratory: Rales and Non Labored Respirations
Cardiac: Regular Rhythm and S1/S2
GI: Soft, Nontender, Nondistended and Normal Bowel Sounds
Musculoskeletal: No Edema
Neuro: Awake, Alert, Oriented, AO x 3 and No Motor Deficits
Psych: Calm, mild Confused and Other (Restrained)
Anticipated Discharge: > 48 hours
Subjective/Interval History
-
Date of Service: July 06, 2025
Denies nausea
Objective Data
-
Labs:
Laboratory Results
07/06/25
05:48
WBC 5.8
Hgb 12.0
Hct 35.2 L
Plt Count 168
Sodium 140
Potassium 3.0 L
Chloride 107
Carbon Dioxide 28
BUN 9
Creatinine 0.4 L
Glucose 107 H
Calcium 8.0 L
Vital Signs:
Vital Signs
Temp Pulse Resp BP Pulse Ox
97.5 F 72 14 151/82 96
07/06/25 07:06 07/06/25 07:52 07/06/25 07:52 07/06/25 07:06 07/06/25 07:52
I&O
07/05/25 07/06/25 07/07/25
06:59 06:59 06:59
Intake Total 2460 / 2460 0 / 0
Output Total 540 / 540
Balance 1919 / 192 0 / 0
[2025-07-06 15:56] VITALS: BP 165/85
[2025-07-06 22:45] VITALS: BP 175/101
[2025-07-06 22:56] VITALS: BP 175/101
[2025-07-07 00:27] VITALS: BP 146/67
[2025-07-07] MEDS: D5/0.9% SODIUM CHLORIDE IV (04:34)
[2025-07-07] MEDS: D5/0.9% SODIUM CHLORIDE 1000 IV ×2 (06:13→16:24)
[2025-07-07 07:10] VITALS: BP 131/77
[2025-07-07] MEDS: SYMBICORT 160/4.5 MCG INHALER 2 PUFF INH ×2 (07:30→20:07)
[2025-07-07] MEDS: SPIRIVA RESPIMAT 2.5 MCG 2 PUFF INH (07:30)
[2025-07-07] MEDS: HEPARIN 5000 UNITS SC ×2 (08:04→20:21)
[2025-07-07] MEDS: NSS (PRESERVATIVE FREE) 10 ML IV (08:05)
[2025-07-07] MEDS: PROTONIX IV 40 MG IV (08:05)
[2025-07-07] MEDS: DESENEX/MITRAZOL/ZEASORB 1 APPLIC TOPICAL ×2 (08:06→20:24)
[2025-07-07 09:17] LABS: Hematocrit 34.3 % (37.0-47.0); Hemoglobin 11.6 g/dL (12.0-16.0); Mean Corp Hgb Conc. 33.8 g/dL (33.0-37.0); Mean Corpuscular Volume 94.8 fL (81.0-99.0); Platelet Count 183 10^3/uL (130-400); Red Cell Dist. Width 12.7 % (11.5-14.5)
[2025-07-07 09:46] LABS: Blood Urea Nitrogen 8 mg/dl (7-17); Calcium 8.3 mg/dl (8.4-10.2); Carbon Dioxide 27 mmol/L (22-30); Chloride 106 mmol/L (98-107); Estimated Creatinine Clearance 67 ml/min; Glucose 103 mg/dl (70-99); Potassium 3.5 mmol/L (3.5-5.1); Sodium 135 mmol/L (135-145); eGFR > 60.00
--- NOTE | 2025-07-07 11:23 | W.PN.GS2 ---
Addendum entered and electronically signed by Jersey Vizcarra MD 07/07/25 11:40:
Patient seen and examined. Family members at bedside.
No acute events overnight.
Alert and conversant today than in the past.
She denies pain and offers no specific concerns.
AFVSS
NAD AAO x 1
ABD: Soft, nondistended, nontender
NG tube in place with gastric contents in canister
Assessment/plan: 85-year-old female gastric outlet obstruction secondary to paraesophageal hernia
Confirmed with patient's family members at bedside plan for laparoscopic gastropexy tomorrow and they did not have any additional specific questions or concerns.
Original Note:
Today's Communication / Plan
-
surgery tomorrow
remain with NGT/NPO
Assessment / Plan
-
Assessment/Plan: 85-year-old female admitted with acute gastric outlet obstruction secondary to large paraesophageal hernia
WBC: 6.2, RBC 11.6. Vitals normal.
-Clinically stable, no signs of immediate gastric threat (ischemia/perforation)
-Maintain NG tube decompression - put out 0ml
-Continue PPI
-Will plan for laparoscopic gastropexy on Tuesday after allowing sufficient amount of time for the swelling in the stomach to subside. Family updated and agreeable to plan of care.
-Remain NPO
-Type and screen ordered for AM
Subjective Data
-
Date of Service: July 07, 2025
Patient states she has no pain. She currently has no complaints.
Objective Data
-
Intake and Output
07/06/25 07/07/25 07/08/25
06:59 06:59 06:59
Intake Total 0 / 0 120 / 120
Balance 0 / 0 120 / 120
Intake:
Oral fluids 0 / 0 120 / 120
Other:
How many times incontinent 2 3
MODERATE amount urine
How many times incontinent 1 3
SATURATED amount urine
Vital Signs
Temp Pulse Resp BP Pulse Ox
97.7 F 72 14 131/77 93
07/07/25 07:10 07/07/25 07:30 07/07/25 07:30 07/07/25 07:10 07/07/25 07:10
Lab Results
07/07/25 08:22
07/07/25 08:22
Calcium 8.3 mg/dl (8.4-10.2) L 07/07/25 08:22
Total Bilirubin 1.0 mg/dl (0.2-1.3) 07/02/25 13:02
AST 26 U/L (14-36) 07/02/25 13:02
ALT 22 U/L (0-35) 07/02/25 13:02
Alkaline Phosphatase 91 U/L (38-126) 07/02/25 13:02
Total Protein 7.4 g/dl (6.3-8.2) 07/02/25 13:02
Albumin 4.6 g/dl (3.5-5.0) 07/02/25 13:02
Physical Exam
-
GENERAL/NEURO: Awake, Alert, no distress
ABDOMEN: Soft, mildly tender throughout, Non-Distended, NG tube with dark output
Patient has a central line: No
--- NOTE | 2025-07-07 13:27 | W.PN.HOSP.TC ---
Today's Communication/Plan
-
Monitor vital signs see plan
Continue with NG tube
plan for laparoscopic gastropexy tomorrow
Assessment / Plan
Assessment / Plan
Impression:
85-year-old female past medical history of COPD, hypertension, hyperlipidemia, dementia presenting for 2 episodes of vomiting this morning. She has chronic shortness of breath related to COPD which is not worse. Denies abdominal pain, chest pain,
wheezing, changes in bowels, headache, vision changes or urinary symptoms. Patient very poor historian secondary to dementia , CT abdomen pelvis shows large paraesophageal hiatal hernia causing gastric outlet obstruction, minimal fluid in the
hiatal hernia sac, patient kept n.p.o., surgery consulted.
Status post NG tube
Assessment/plan:
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
CT abdomen/pelvis shows large paraesophageal hiatal hernia causing gastric outlet obstruction with minimal fluid in the hernia sac.
Management:
NPO
cw IV fluids, gentle hydration
Hold Lasix; monitor volume status closely. Might need dose intermittently
NG tube placement to suction
General Surgery following. Possible plan for laparoscopic gastropexy on Tuesday
Follow surgery recommendation regarding surgical intervention versus continue conservative management.
Solid Mass in Right Breast (Upper Outer Quadrant)
Imaging suggests probable right breast cancer per CT findings.
Chronic Obstructive Pulmonary Disease (COPD)
DuoNebs PRN
Takes Trelegy, continue
Essential Hypertension
Hold Coreg for now
add hydralazine PRN
Hyperlipidemia
Hold statin
Hypokalemia
Replete
Acute metabolic encephalopathy
Hospital delirium with underlying dementia, delirium appears to be getting better
Continue restraints
CODE STATUS: Full code
DVT prophylaxis: Heparin
Diet: N.p.o.
Disposition: Continue NG tube suction, if surgery indicated will be early next week.
Tried multiple times with usp and RN. Med rec still needs to be completed
General: Well Developed
HEENT: Normocephalic, Atraumatic, Moist Mucous Membranes, No Ptosis, PERRLA, Nose Appears Normal and Other (NG tube in place,)
Respiratory: Rales and Non Labored Respirations
Cardiac: Regular Rhythm and S1/S2
GI: Soft, Nontender, Nondistended and Normal Bowel Sounds
Musculoskeletal: No Edema
Neuro: Awake, Alert, Oriented, AO x 3 and No Motor Deficits
Psych: Calm, mild Confused and Other (Restrained)
Anticipated Discharge: > 48 hours
Subjective/Interval History
-
Date of Service: July 07, 2025
Denies pain
Objective Data
-
Labs:
Laboratory Results
07/07/25
08:22
WBC 6.2
Hgb 11.6 L
Hct 34.3 L
Plt Count 183
Sodium 135
Potassium 3.5
Chloride 106
Carbon Dioxide 27
BUN 8
Creatinine 0.5 L
Glucose 103 H
Calcium 8.3 L
Vital Signs:
Vital Signs
Temp Pulse Resp BP Pulse Ox
97.7 F 72 14 131/77 93
07/07/25 07:10 07/07/25 07:30 07/07/25 07:30 07/07/25 07:10 07/07/25 07:10
I&O
07/06/25 07/07/25 07/08/25
06:59 06:59 06:59
Intake Total 0 / 0 120 / 120
Balance 0 / 0 120 / 120
[2025-07-07 15:06] VITALS: BP 149/70
[2025-07-07] MEDS: DILAUDID 0.5 MG IV ×2 (16:31→22:23)
[2025-07-07 20:13] VITALS: BP 149/77
[2025-07-07 23:55] VITALS: BP 145/89
[2025-07-08] VITALS (12 sets, daily range): BP systolic 112–154; BP diastolic 59–80
[2025-07-08 06:46] LABS: Hematocrit 40.4 % (37.0-47.0); Hemoglobin 13.0 g/dL (12.0-16.0); Mean Corp Hgb Conc. 32.2 g/dL (33.0-37.0); Mean Corpuscular Volume 99.5 fL (81.0-99.0); Nucleated Red Blood Cells % 0 %; Platelet Count 195 10^3/uL (130-400); Red Cell Dist. Width 13.0 % (11.5-14.5)
[2025-07-08 07:08] LABS: Blood Urea Nitrogen 11 mg/dl (7-17); Calcium 8.5 mg/dl (8.4-10.2); Carbon Dioxide 26 mmol/L (22-30); Chloride 105 mmol/L (98-107); Estimated Creatinine Clearance 67 ml/min; Glucose 86 mg/dl (70-99); Potassium 3.5 mmol/L (3.5-5.1); Sodium 136 mmol/L (135-145); eGFR > 60.00
[2025-07-08] MEDS: SPIRIVA RESPIMAT 2.5 MCG 2 PUFF INH (07:25)
[2025-07-08] MEDS: SYMBICORT 160/4.5 MCG INHALER 2 PUFF INH ×2 (07:25→20:47)
[2025-07-08] MEDS: PROTONIX IV 40 MG IV (07:50)
[2025-07-08] MEDS: HEPARIN 5000 UNITS SC ×2 (07:50→20:17)
[2025-07-08] MEDS: NSS (PRESERVATIVE FREE) 10 ML IV (07:51)
[2025-07-08] MEDS: DESENEX/MITRAZOL/ZEASORB 1 APPLIC TOPICAL ×2 (07:55→20:27)
--- NOTE | 2025-07-08 10:15 | W.SUR.PREOP ---
Pre-Operative Surgical Note
-
I have examined this patient prior to the performance of the scheduled procedure.
The patient's condition is unchanged from the time of the current History and
Physical and the patient is able to undergo the scheduled procedure.
--- NOTE | 2025-07-08 10:33 | PTCARENOTE ---
The OR had called for report on the pt and then called transport. When I went into the room to get the pt ready, I found that the pt had pulled out the NG Tube , with her restraints on. I tightened them a little further to prevent this from
happening. I called back to the OR and they had stated that they will replace the NG Tube during surgery.
--- NOTE | 2025-07-08 12:55 | W.IMMPOSTOP ---
Surgical Immed Post Op Note
-
Primary Surgeon: Keith Baker MD
Assisting Surgeon: None
Fire Protection Equipment Technician:
DAVON Reeves
TATIANA Da Silva
Pre-op Diagnosis: Gastric volvulus, hiatal hernia
Post-op Diagnosis: Same
Procedure Performed:
1. Laparoscopic reduction of the hiatal hernia with gastropexy
2. EGD
Anesthesia Type: General
Specimen / Cultures: None
Estimated Blood Loss: 3 cc
Complications: None
Operative Findings: Large hiatal hernia, stomach oriented in the correct orientation and four 0 silk gastropexy sutures were placed along the greater curve and tacked to the abdominal wall in the left upper quadrant. A subsequent EGD redemonstrated
a large hiatal hernia but no other stigmata or pathology such as esophagitis, or Venkata's ulcers. The scope was navigated to the duodenum with ease. The stomach was again noted to be in the proper orientation.
POST OP PLAN:
Imaging: None
Labs: Routine AM
Diet: Sips of clears, will advance to full liquid diet by discharge
Analgesia: Tylenol 650mg q6 Magalys, Dilaudid 0.5mg q2h PRN
Neuro/vascular checks: Per unit protocol
AC/AP: Hold Therapeutic AC, Ok for DVT PPx
Activity: Ad Naomi
Wound/Incisions/Drains: Routine
Abx: None
Dispo: RNF, anticipate additional 1 to 2 days in the hospital.
--- NOTE | 2025-07-08 13:23 | CM ---
Chart reviewed and patient is currently off floor in OR.
Plan; Patient is in OR.
--- NOTE | 2025-07-08 14:31 | PTCARENOTE ---
Per. Dr. Deleon, to DC ng tube and to start the pt on sips of clears.
[2025-07-08] MEDS: DILAUDID 0.5 MG IV (14:58)
--- NOTE | 2025-07-08 15:40 | W.PN.HOSP.TC ---
Today's Communication/Plan
-
Postoperative care
Monitor for recurrent delirium
Discussed with nursing discussed with patient's daughter at the
Assessment / Plan
Assessment / Plan
Impression:
85-year-old female past medical history of COPD, hypertension, hyperlipidemia, dementia presenting for 2 episodes of vomiting this morning. She has chronic shortness of breath related to COPD which is not worse. Denies abdominal pain, chest pain,
wheezing, changes in bowels, headache, vision changes or urinary symptoms. Patient very poor historian secondary to dementia , CT abdomen pelvis shows large paraesophageal hiatal hernia causing gastric outlet obstruction, minimal fluid in the
hiatal hernia sac, patient kept n.p.o., surgery consulted.
Status post NG tube
Assessment/plan:
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
CT abdomen/pelvis shows large paraesophageal hiatal hernia causing gastric outlet obstruction with minimal fluid in the hernia sac.
Status post laparoscopic reduction of hiatal hernia with gastropexy on 07/08
Postoperative care with plan for sips of clears later advancing to full liquids
Intraoperative EGD redemonstrated large hiatal hernia but no other stigmata of pathology such as esophagitis or Venkata ulcers.
Solid Mass in Right Breast (Upper Outer Quadrant)
Imaging suggests probable right breast cancer per CT findings.
Chronic Obstructive Pulmonary Disease (COPD)
DuoNebs PRN
Takes Trelegy, continue
Essential Hypertension
Hold Coreg for now
add hydralazine PRN
Hyperlipidemia
Hold statin
Hypokalemia
Replete
Acute metabolic encephalopathy
Hospital delirium with underlying dementia, delirium appears to be getting better
Continue restraints
CODE STATUS: Full code
DVT prophylaxis: Heparin
Anticipated Discharge: 24 - 48 hours
Subjective/Interval History
-
Date of Service: July 08, 2025
Objective Data
-
Labs:
Laboratory Results
07/08/25
05:50
WBC 7.8
Hgb 13.0
Hct 40.4
Plt Count 195
Sodium 136
Potassium 3.5
Chloride 105
Carbon Dioxide 26
BUN 11
Creatinine 0.5 L
Glucose 86
Calcium 8.5
Vital Signs:
Vital Signs
Temp Pulse Resp BP Pulse Ox
97.3 F 75 18 141/80 94
07/08/25 15:02 07/08/25 15:02 07/08/25 15:02 07/08/25 15:02 07/08/25 15:02
I&O
07/07/25 07/08/25 07/09/25
06:59 06:59 06:59
Intake Total 120 / 120 80 / 80
Output Total 155 / 155
Balance 120 / 120 -75 / -75
Physical Exam
-
General: Well Developed and No Apparent Distress
HEENT: Normocephalic, Atraumatic and Moist Mucous Membranes
Respiratory: Clear to Auscultation
Cardiac: Regular Rhythm and S1/S2; Negative Murmur, Rub or Gallop
GI: Soft, Nontender, Nondistended and Normal Bowel Sounds; Negative Organomegaly
Rectal: Deferred by Provider
Musculoskeletal: No Clubbing, No Cyanosis and No Edema
Skin: Negative Rash
Neuro: Nonfocal/Grossly Intact
--- NOTE | 2025-07-08 22:34 | PTCARENOTE ---
Report received from nurse Yen prior to patient being transferred to [address] [place] [address] from [facility]. Pt. received and placed in 2108, VSS upon transfer. Call moran in reach, bed in lowest position, bed alarm in place.
Upon transfer, pt. observed with severe edema in hands; pt. also observed with wedding ring and band on left hand. Left ring finger extremely swollen and red d/t wedding ring constricting finger. Lubricant placed on left ring finger and rings
removed for pt. safety. Following removal, pt's left ring finger is red and swollen. Rings placed in a belonging bag with patient label and name and placed next to pt. on her bedside table.
--- NOTE | 2025-07-09 00:21 | PTCARENOTE ---
Patient was successfully transferred to unit 2S, belongings were sent with her.
[2025-07-09 07:33] VITALS: BP 113/62
[2025-07-09] MEDS: SYMBICORT 160/4.5 MCG INHALER 2 PUFF INH ×2 (07:34→19:12)
[2025-07-09] MEDS: SPIRIVA RESPIMAT 2.5 MCG 2 PUFF INH (07:34)
[2025-07-09] MEDS: DESENEX/MITRAZOL/ZEASORB 1 APPLIC TOPICAL ×2 (08:22→19:31)
[2025-07-09] MEDS: HEPARIN 5000 UNITS SC ×2 (08:23→19:29)
[2025-07-09] MEDS: PROTONIX IV 40 MG IV (08:23)
[2025-07-09] MEDS: NSS (PRESERVATIVE FREE) 10 ML IV (08:24)
[2025-07-09 10:10] LABS: Hematocrit 35.8 % (37.0-47.0); Hemoglobin 11.8 g/dL (12.0-16.0); Mean Corp Hgb Conc. 33.0 g/dL (33.0-37.0); Mean Corpuscular Volume 101.1 fL (81.0-99.0); Nucleated Red Blood Cells % 0 %; Platelet Count 198 10^3/uL (130-400); Red Cell Dist. Width 12.6 % (11.5-14.5)
--- NOTE | 2025-07-09 10:37 | W.PN.GS2 ---
Today's Communication / Plan
-
-Clears
-Pain control: Tylenol, Tramadol
-DC Olivares
Assessment / Plan
-
Assessment/Plan: 85-year-old female admitted with acute gastric outlet obstruction secondary to large paraesophageal hernia
POD#1 s/p laparoscopic PEH reduction and gastropexy
AVSS
Labs notable for normal WBC, mild drift in Hb, stable platelets, BMP pending
Recovering well overall. Plan for trial of clears. Okay to remove Olivares today.
-Clears
-Pain control: Tylenol, Tramadol
-DC Olivares
-OK for home meds
-GI: PPI
-DVT: SQH
-OOB/ambulate
Subjective Data
-
Date of Service: July 09, 2025
Manage complaints. Pain overall well-controlled. No nausea or vomiting., Hungry. Afebrile.
Objective Data
-
Intake and Output
07/08/25 07/09/25 07/10/25
06:59 06:59 06:59
Intake Total 80 / 80
Output Total 155 / 155 525 / 525
Balance -75 / -75 -525 / -525
Intake:
Oral fluids 0 / 0
Amount instilled into GI Tube ( 80 / 80
Total)
[place] Sump 80 / 80
Output:
Gastrointestinal tube output ( 155 / 155
Total)
[place] Sump 155 / 155
Urine, Olivares 525 / 525
Other:
How many times incontinent 2
SATURATED amount urine
Vital Signs
Temp Pulse Resp BP Pulse Ox
98.1 F 88 16 113/62 95
07/09/25 07:33 07/09/25 07:37 07/09/25 07:37 07/09/25 07:33 07/09/25 07:37
Lab Results
07/09/25 09:36
Calcium 8.5 mg/dl (8.4-10.2) 07/08/25 05:50
Total Bilirubin 1.0 mg/dl (0.2-1.3) 07/02/25 13:02
AST 26 U/L (14-36) 07/02/25 13:02
ALT 22 U/L (0-35) 07/02/25 13:02
Alkaline Phosphatase 91 U/L (38-126) 07/02/25 13:02
Total Protein 7.4 g/dl (6.3-8.2) 07/02/25 13:02
Albumin 4.6 g/dl (3.5-5.0) 07/02/25 13:02
Physical Exam
-
Gen: NAD
Abd: Currently getting a sponge bath and cleaned up, physical exam deferred
Patient has a olivares catheter: Yes
Patient has a central line: No
[2025-07-09] MEDS: ULTRAM 50 MG PO (10:50)
[2025-07-09 11:14] LABS: Blood Urea Nitrogen 16 mg/dl (7-17); Calcium 8.5 mg/dl (8.4-10.2); Carbon Dioxide 27 mmol/L (22-30); Chloride 104 mmol/L (98-107); Estimated Creatinine Clearance 67 ml/min; Glucose 85 mg/dl (70-99); Potassium 3.8 mmol/L (3.5-5.1); Sodium 133 mmol/L (135-145); eGFR > 60.00
[2025-07-09 12:02] VITALS: BP 142/72; PULSE 79
--- NOTE | 2025-07-09 13:42 | W.PN.HOSP.TC ---
Today's Communication/Plan
-
Postoperative care
Clears
Off IV fluids
PT assessment
Monitor for recurrent delirium. Currently off restraints
Assessment / Plan
Assessment / Plan
Impression:
85-year-old female past medical history of COPD, hypertension, hyperlipidemia, dementia presenting for 2 episodes of vomiting this morning. She has chronic shortness of breath related to COPD which is not worse. Denies abdominal pain, chest pain,
wheezing, changes in bowels, headache, vision changes or urinary symptoms. Patient very poor historian secondary to dementia , CT abdomen pelvis shows large paraesophageal hiatal hernia causing gastric outlet obstruction, minimal fluid in the
hiatal hernia sac, patient kept n.p.o., surgery consulted.
Status post NG tube
Assessment/plan:
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
CT abdomen/pelvis shows large paraesophageal hiatal hernia causing gastric outlet obstruction with minimal fluid in the hernia sac.
Status post laparoscopic reduction of hiatal hernia with gastropexy on 07/08
Postoperative care with plan for sips of clears later advancing to full liquids
Intraoperative EGD redemonstrated large hiatal hernia but no other stigmata of pathology such as esophagitis or Venkata ulcers.
Clear liquid diet
Solid Mass in Right Breast (Upper Outer Quadrant)
Imaging suggests probable right breast cancer per CT findings.
Chronic Obstructive Pulmonary Disease (COPD)
DuoNebs PRN
Takes Trelegy, continue
Essential Hypertension
Hold Coreg for now
add hydralazine PRN
Hyperlipidemia
Hold statin
Hypokalemia
Replete
Acute metabolic encephalopathy
Suspect underlying dementia senile type
Hospital delirium with underlying dementia, resolved
Off restraints
CODE STATUS: Full code
DVT prophylaxis: Heparin
Anticipated Discharge: 24 - 48 hours
Subjective/Interval History
-
Date of Service: July 09, 2025
Objective Data
-
Labs:
Laboratory Results
07/09/25
09:36
WBC 7.0
Hgb 11.8 L
Hct 35.8 L
Plt Count 198
Sodium 133 L
Potassium 3.8
Chloride 104
Carbon Dioxide 27
BUN 16
Creatinine 0.6
Glucose 85
Calcium 8.5
Vital Signs:
Vital Signs
Temp Pulse Resp BP Pulse Ox
98.1 F 88 16 113/62 95
07/09/25 07:33 07/09/25 07:37 07/09/25 07:37 07/09/25 07:33 07/09/25 07:37
I&O
07/08/25 07/09/25 07/10/25
06:59 06:59 06:59
Intake Total 80 / 80
Output Total 155 / 155 525 / 525
Balance -75 / -75 -525 / -525
Physical Exam
-
General: Well Developed and No Apparent Distress
HEENT: Normocephalic, Atraumatic and Moist Mucous Membranes
Respiratory: Clear to Auscultation
Cardiac: Regular Rhythm and S1/S2; Negative Murmur, Rub or Gallop
GI: Soft, Nontender, Nondistended and Normal Bowel Sounds; Negative Organomegaly
Rectal: Deferred by Provider
Musculoskeletal: No Clubbing, No Cyanosis and No Edema
Skin: Negative Rash
Neuro: Nonfocal/Grossly Intact
--- NOTE | 2025-07-09 13:48 | CM ---
CM following re: discharge planning.
Reviewed pt's chart, met with pt and spoke to pt's daughter Clemencia over the phone to update on discharge plan progress.
PT and OT have been recommending SNF level of care. Both pt and her daughter are aware, expressed their agreement and following SNFs requested: [facility], [facility], [facility], [facility]. A referral to above SNFs made. Awaiting for determination. Pt
stated she lives in an independent apartment at [facility] and pt expressed her understanding she must to be stronger in order to return back to [facility].
D/C plan: Preferred SNF.
CM will follow to assist pt with discharge to a preferred SNF.
[2025-07-09 15:29] VITALS: BP 118/59
[2025-07-09 23:09] VITALS: BP 122/60
--- NOTE | 2025-07-10 00:01 | PTCARENOTE ---
During pt. care/repositioning in bed, pt. was checked and found to be dry with no episodes of incontinence. Pt. was educated regarding urinary retention and was encouraged to void; pt. assisted OOB onto the commode and was able to void only 50 mls
of urine, after which she stated that she did not feel she had to urinate anymore. Pt. returned to bed and bladder scanned and found to have 767 mls of urine remaining in bladder. Pt. educated and agreeable to straight cath; straight cath yielded
800 mls of urine. Plan of care continues.
[2025-07-10 07:05] LABS: Hematocrit 35.8 % (37.0-47.0); Hemoglobin 11.7 g/dL (12.0-16.0); Mean Corp Hgb Conc. 32.7 g/dL (33.0-37.0); Mean Corpuscular Volume 101.4 fL (81.0-99.0); Nucleated Red Blood Cells % 0 %; Platelet Count 212 10^3/uL (130-400); Red Cell Dist. Width 13.0 % (11.5-14.5)
[2025-07-10 07:20] VITALS: BP 101/72
[2025-07-10 07:32] LABS: Blood Urea Nitrogen 12 mg/dl (7-17); Calcium 8.5 mg/dl (8.4-10.2); Carbon Dioxide 31 mmol/L (22-30); Chloride 105 mmol/L (98-107); Estimated Creatinine Clearance 67 ml/min; Glucose 84 mg/dl (70-99); Potassium 3.4 mmol/L (3.5-5.1); Sodium 138 mmol/L (135-145); eGFR > 60.00
[2025-07-10] MEDS: SPIRIVA RESPIMAT 2.5 MCG 2 PUFF INH (08:10)
[2025-07-10] MEDS: SYMBICORT 160/4.5 MCG INHALER 2 PUFF INH ×2 (08:11→19:19)
[2025-07-10] MEDS: PROTONIX IV 40 MG IV (09:03)
[2025-07-10] MEDS: HEPARIN 5000 UNITS SC ×2 (09:04→20:31)
[2025-07-10] MEDS: NSS (PRESERVATIVE FREE) 10 ML IV (09:04)
[2025-07-10] MEDS: DESENEX/MITRAZOL/ZEASORB 1 APPLIC TOPICAL ×2 (09:05→20:32)
[2025-07-10] MEDS: KCL 40 MEQ PO (09:05)
--- NOTE | 2025-07-10 09:26 | W.PN.GS2 ---
Today's Communication / Plan
-
FLD
Dispo planning
Assessment / Plan
-
Assessment/Plan: 85-year-old female admitted with acute gastric outlet obstruction secondary to large paraesophageal hernia
POD#2 s/p laparoscopic PEH reduction and gastropexy
AVSS
Labs OK, very mild hypokalemia noted
Recovering well overall. Plan for adv to fld
-FLD
-Pain control: Tylenol, Tramadol
-OK for home meds
-GI: PPI
-DVT: SQH
-OOB/ambulate
Dispo planning
Subjective Data
-
Date of Service: July 10, 2025
AFVSS, pain controlled, cr cld, passing flatus, voiding
Objective Data
-
Intake and Output
07/09/25 07/10/25 07/11/25
06:59 06:59 06:59
Intake Total 540 / 540 240 / 240
Output Total 525 / 525 1800 / 1800 50 / 50
Balance -525 / -525 -1260 / -1260 190 / 190
Intake:
Oral fluids 540 / 540 240 / 240
Output:
Urine, Olivares 525 / 525 200 / 200
Urine, Voided 50 / 50
Straight cath output 1600 / 1600
Other:
How many times incontinent 1
SMALL amount urine
Vital Signs
Temp Pulse Resp BP Pulse Ox
98.2 F 76 18 101/72 96
07/10/25 07:20 07/10/25 08:14 07/10/25 08:14 07/10/25 07:20 07/10/25 08:14
Lab Results
07/10/25 06:32
07/10/25 06:32
Calcium 8.5 mg/dl (8.4-10.2) 07/10/25 06:32
Total Bilirubin 1.0 mg/dl (0.2-1.3) 07/02/25 13:02
AST 26 U/L (14-36) 07/02/25 13:02
ALT 22 U/L (0-35) 07/02/25 13:02
Alkaline Phosphatase 91 U/L (38-126) 07/02/25 13:02
Total Protein 7.4 g/dl (6.3-8.2) 07/02/25 13:02
Albumin 4.6 g/dl (3.5-5.0) 07/02/25 13:02
Physical Exam
-
Gen: NAD
Abd: soft, mild distention, incisions cdi with glue, minimal ttp
Patient has a olivares catheter: No
Patient has a central line: No
[2025-07-10] MEDS: ULTRAM 50 MG PO ×2 (10:08→18:14)
--- NOTE | 2025-07-10 11:13 | CM ---
PT indicates SNF
As per care [facility] can not accept patient.
LM with Evelyn from [facility] .
Spoke with Clemencia lewis she said plan is after SNF then return to [facility].
IMM reviewed emailed IMM to email [email or web address] as requested.
PLAN Located SNF
--- NOTE | 2025-07-10 14:39 | W.PN.HOSP.TC ---
Today's Communication/Plan
-
Guy catheter removed for trial of voiding. Monitor for recurrent retention
Full liquid diet
PT discharge planning
Assessment / Plan
Assessment / Plan
Impression:
85-year-old female past medical history of COPD, hypertension, hyperlipidemia, dementia presenting for 2 episodes of vomiting this morning. She has chronic shortness of breath related to COPD which is not worse. Denies abdominal pain, chest pain,
wheezing, changes in bowels, headache, vision changes or urinary symptoms. Patient very poor historian secondary to dementia , CT abdomen pelvis shows large paraesophageal hiatal hernia causing gastric outlet obstruction, minimal fluid in the
hiatal hernia sac, patient kept n.p.o., surgery consulted.
Status post NG tube
Assessment/plan:
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
CT abdomen/pelvis shows large paraesophageal hiatal hernia causing gastric outlet obstruction with minimal fluid in the hernia sac.
Status post laparoscopic reduction of hiatal hernia with gastropexy on 07/08
Postoperative care with plan for sips of clears later advancing to full liquids
Intraoperative EGD redemonstrated large hiatal hernia but no other stigmata of pathology such as esophagitis or Venkata ulcers.
Full liquid diet
Guy catheter removed for trial of voiding on 06/08
Solid Mass in Right Breast (Upper Outer Quadrant)
Imaging suggests probable right breast cancer per CT findings.
Chronic Obstructive Pulmonary Disease (COPD)
DuoNebs PRN
Takes Trelegy, continue
Essential Hypertension
Hold Coreg for now
add hydralazine PRN
Hyperlipidemia
Hold statin
Hypokalemia
Replete
Acute metabolic encephalopathy
Suspect underlying dementia senile type
Hospital delirium with underlying dementia, resolved
Off restraints
CODE STATUS: Full code
DVT prophylaxis: Heparin
Anticipated Discharge: 24 - 48 hours
Subjective/Interval History
-
Date of Service: July 10, 2025
Objective Data
-
Labs:
Laboratory Results
07/10/25
06:32
WBC 5.7
Hgb 11.7 L
Hct 35.8 L
Plt Count 212
Sodium 138
Potassium 3.4 L
Chloride 105
Carbon Dioxide 31 H
BUN 12
Creatinine 0.6
Glucose 84
Calcium 8.5
Vital Signs:
Vital Signs
Temp Pulse Resp BP Pulse Ox
98.2 F 76 18 101/72 96
07/10/25 07:20 07/10/25 08:14 07/10/25 08:14 07/10/25 07:20 07/10/25 08:14
I&O
07/09/25 07/10/25 07/11/25
06:59 06:59 06:59
Intake Total 540 / 540 540 / 540
Output Total 525 / 525 1800 / 1800 975 / 975
Balance -525 / -525 -1260 / -1260 -435 / -435
Physical Exam
-
General: Well Developed and No Apparent Distress
HEENT: Normocephalic, Atraumatic and Moist Mucous Membranes
Respiratory: Clear to Auscultation
Cardiac: Regular Rhythm and S1/S2; Negative Murmur, Rub or Gallop
GI: Soft, Nontender, Nondistended and Normal Bowel Sounds; Negative Organomegaly
Rectal: Deferred by Provider
Musculoskeletal: No Clubbing, No Cyanosis and No Edema
Skin: Negative Rash
Neuro: Nonfocal/Grossly Intact
[2025-07-10 15:47] VITALS: BP 113/51
[2025-07-10 23:12] VITALS: BP 130/65
--- NOTE | 2025-07-11 01:45 | PTCARENOTE ---
Pt has had 3 straight catheterizations for 800mL urine since olivares catheter removal on 07/09 at 10:40. Bladder scan at 01:00 showed 580mL urine in bladder. Reached out to House Provider and orders received to place another olivares. #14 fr olivares placed
with no difficulty. 700mL clear yellow urine drained.
[2025-07-11 07:15] VITALS: BP 121/60
[2025-07-11] MEDS: NSS (PRESERVATIVE FREE) 10 ML IV (07:23)
[2025-07-11] MEDS: PROTONIX IV 40 MG IV (07:24)
[2025-07-11] MEDS: HEPARIN 5000 UNITS SC (07:25)
[2025-07-11] MEDS: DESENEX/MITRAZOL/ZEASORB 1 APPLIC TOPICAL (07:27)
[2025-07-11 07:34] LABS: Blood Urea Nitrogen 7 mg/dl (7-17); Calcium 8.2 mg/dl (8.4-10.2); Carbon Dioxide 31 mmol/L (22-30); Chloride 104 mmol/L (98-107); Estimated Creatinine Clearance 67 ml/min; Glucose 87 mg/dl (70-99); Potassium 3.7 mmol/L (3.5-5.1); Sodium 134 mmol/L (135-145); eGFR > 60.00
[2025-07-11] MEDS: SPIRIVA RESPIMAT 2.5 MCG 2 PUFF INH (07:40)
[2025-07-11] MEDS: SYMBICORT 160/4.5 MCG INHALER 2 PUFF INH (07:40)
--- NOTE | 2025-07-11 08:34 | W.PN.GS2 ---
Today's Communication / Plan
-
Surgery signing off
Assessment / Plan
-
Assessment/Plan: 85-year-old female admitted with acute gastric outlet obstruction secondary to large paraesophageal hernia
POD#3 s/p laparoscopic PEH reduction and gastropexy
AVSS, on nasal cannula
Urinary retention with Olivares catheter in place
Patient currently on a full liquid diet and tolerating well. She will be on this diet for an additional week before transitioning to a regular diet.
Wean off O2 as able.
May need to be discharged with a Olivares bag and outpatient urology follow-up, will defer to primary.
General Surgery will sign off for now, please call with any questions or concerns.
Patient to follow-up with me in 2 to 3 weeks, discharge instructions updated.
Time Spent
Total Time Spent with Patient (in minutes): 20
Subjective Data
-
Date of Service: July 11, 2025
Interval Events:
No acute events overnight. Failed trial of void, Olivares replaced. Slept well. Pain Controlled. Denies Nausea/Vomiting, +bowel function. Tolerating diet.
Objective Data
-
Intake and Output
07/10/25 07/11/25 07/12/25
06:59 06:59 06:59
Intake Total 540 / 540 1020 / 1020
Output Total 1800 / 1800 1675 / 1675
Balance -1260 / -1260 -655 / -655
Intake:
Oral fluids 540 / 540 1020 / 1020
Output:
Urine, Olivares 200 / 200 700 / 700
Urine, Voided 175 / 175
Straight cath output 1600 / 1600 800 / 800
Other:
How many times incontinent 1
SMALL amount urine
Vital Signs
Temp Pulse Resp BP Pulse Ox
97.9 F 70 16 121/60 95
07/11/25 07:15 07/11/25 07:44 07/11/25 07:44 07/11/25 07:15 07/11/25 07:44
Lab Results
07/10/25 06:32
07/11/25 06:19
Calcium 8.2 mg/dl (8.4-10.2) L 07/11/25 06:19
Total Bilirubin 1.0 mg/dl (0.2-1.3) 07/02/25 13:02
AST 26 U/L (14-36) 07/02/25 13:02
ALT 22 U/L (0-35) 07/02/25 13:02
Alkaline Phosphatase 91 U/L (38-126) 07/02/25 13:02
Total Protein 7.4 g/dl (6.3-8.2) 07/02/25 13:02
Albumin 4.6 g/dl (3.5-5.0) 07/02/25 13:02
Physical Exam
-
GENERAL/NEURO: Awake, Alert, no distress
CHEST: Unlabored breathing on RA
ABDOMEN: Soft, Non-Tender, Non-Distended, incisions clean dry and intact. Some expected bruising noted.
Patient has a olivares catheter: Yes
Patient has a central line: No
[2025-07-11 10:45] VITALS: BP 127/66; PULSE 66; O2SAT 96
--- NOTE | 2025-07-11 11:16 | W.DS.TRANS ---
DC Summary - Senior Production Planner
-
Discharge Instructions:
Discharge Diagnosis/Procedures Gastric volvulus. Laparoscopic reduction of a
hiatal hernia, gastropexy
Acute urinary retention requiring Guy catheter
Diet Other diet
Activity No restrictions
Driving Restrictions As prior to admission
Bathing Restrictions OK to Shower
Instructions:
Stand-Alone Forms:
Changes to Home Medications: No
Discharge Medications:
DC Medications w/original date entered in [employer]
acetaminophen 500 mg tablet 1,000 mg PO BID hip pain 12/17/24
carvedilol 12.5 mg tablet 12.5 mg PO BID Blood Pressure 12/17/24
famotidine 40 mg tablet 40 mg PO DAILY Gastrointestinal Issue 12/17/24
ferrous sulfate 325 mg (65 mg iron) tablet 325 mg PO DAILY Supplement 12/17/24
fluticasone fur. 200 mcg-umeclid 62.5 mcg-vilant 25 mcg inhalat.powder (Trelegy Ellipta) 1 inh inhalation DAILY Lung/Breathing Issues 12/17/24
furosemide 20 mg tablet 20 mg PO DAILY Fluid Retention/Swelling 12/17/24
omeprazole 40 mg capsule,delayed release 40 mg PO DAILY GERD 12/17/24
simvastatin 20 mg tablet 20 mg PO DAILY High Cholesterol 12/17/24
Home Medication Changes
Pending Results: No
--- NOTE | 2025-07-11 12:46 | CM ---
Patient has been medically cleared for discharge to [facility] (formerly [facility] for long-term and rehab services. Transport is scheduled for 2:30PM. Patient, daughter, [place] admissions and Team notified. IMM reviewed with daughter.
Nurse to Nurse Report #: [phone]

Will be on the 4th Floor.
--- NOTE | 2025-07-11 17:07 | OR.RPT ---
Addendum entered and electronically signed by Keith Baker MD 07/12/25 09:07:
Date of operation should read 07/08/2025
Original Note:
Operative Report
Operative Report
Patient Name: Airam Butts
: 1940
Date of Operation: 07/11/2025
Preoperative Diagnosis: Gastric volvulus, hiatal hernia
Postoperative Diagnosis: Same
Procedure(s):
1. Laparoscopic reduction of a hiatal hernia with gastropexy
2. EGD
Surgeon(s):
Dr. Baker
Machine Puller(s):
DAVON Reeves
TATIANA Da Silva
Anesthesia: General
Estimated Blood Loss: 3 cc
Urine Output: None
Drains/Lines/Implants: None
Specimens:
1. Small Bowel
HPI/Surgical Indications:
This is an 85 year old female who presents with abdominal pain, nausea vomiting found to have large hiatal hernia with gastric volvulus that was managed with NG decompression. Risks/Benefits/Alternatives were discussed at length, and the patient and
family agreed to proceed with surgery.
Operative Findings: Large hiatal hernia, stomach oriented in the correct orientation and four 0 silk gastropexy sutures were placed along the greater curve and tacked to the abdominal wall in the left upper quadrant. A subsequent EGD redemonstrated
a large hiatal hernia but no other stigmata or pathology such as esophagitis, or Venkata's ulcers. The scope was navigated to the duodenum with ease. The stomach was again noted to be in the proper orientation.
Procedure Description:
The patient was brought to the Operating Room and placed in the supine position with the arms out. IV antibiotics were infused and Venodyne stockings placed. Following uneventful induction of general endotracheal anesthesia, an orogastric tube
were placed. The abdomen was prepped and draped in the usual sterile fashion. The abdomen was entered using a left subcostal Veress followed by a 5 mm left upper quadrant Optiview entry. After achieving a pneumoperitoneum of 15 mmHg and
confirming that no injury occurred on entry, 3 additional 5 mm ports were placed in the left upper (1) and right upper quadrants (2). The stomach was identified and a very large hiatal hernia was noted. My assistant professor of geography through the left upper quadrant
port lifted up the liver for us to better visualize the stomach which was rotated into its normal anatomic orientation. The greater curve was identified and using X4 0 silk sutures, bites along the greater curve were taken and pexied up to the
anterior abdominal wall using stab incisions in the left upper quadrant and passing a Medprex Gonzalez device to pull the sutures through. The sutures were tied completing the gastropexy. All my assistant professor of geography and student close the remaining ports
evacuated pneumoperitoneum I began an upper endoscopy. The scope was gently advanced through the mouth into the esophagus and carefully into the proximal stomach. There was no evidence of esophagitis or Venkata's ulcers. Stomach also did not
appear twisted. The 5 mm port sites were closed with 4-0 Monocryl and glue. Counts were correct x 2. Overall, the patient tolerated the procedure well and was taken to the Recovery Room postoperatively in stable condition.
I was the attending physician and performed the procedure with assistance from the HAND HIDE STRETCHER and student above. I was present for all portions of the case.
Keith Baker MD
== END 2025-07-11 14:35 | DRG 326 ==
LOC: 2 SOUTH 18:32
PROVIDERS: Emergency Medicine; General Practice; Internal Medicine; ADMITTING PHYSICIAN Hospitalist; ATTENDING PHYSICIAN Internal Medicine; CONSULT PHYSICIAN Surgery; EMERGENCY PHYSICIAN Emergency Medicine
PROC: 0DQ64ZZ Repair Stomach, Percutaneous Endoscopic Approach (ICD-10-PCS; 2025-07-08)
PROC: 0BQT4ZZ Repair Diaphragm, Percutaneous Endoscopic Approach (ICD-10-PCS; 2025-07-08)
DX: K44.0 Diaphragmatic hernia with obstruction, without gangrene (principal); G92.8 Other toxic encephalopathy; K31.1 Adult hypertrophic pyloric stenosis; Z87.891 Personal history of nicotine dependence; J44.9 Chronic obstructive pulmonary disease, unspecified; I10 Essential (primary) hypertension; F03.90 Unspecified dementia, unspecified severity, without behavioral disturbance, psychotic disturbance, mood disturbance, and anxiety; K31.89 Other diseases of stomach and duodenum; C50.911 Malignant neoplasm of unspecified site of right female breast; E66.09 Other obesity due to excess calories; Z68.34 Body mass index [BMI] 34.0-34.9, adult; L89.152 Pressure ulcer of sacral region, stage 2; E87.6 Hypokalemia
CPT/HCPCS: 43752; 51701; 71045; 74022; 74177; 80048; 80053; 81003; 81015; 85025; 85027; 86850; 86900; 86901; 87070; 87086; 94640; 97116; 97162; 97530; 99285; C1729; Q9967

== ENCOUNTER → 2025-07-15 10:16 | Outpatient (REF) | payer OTHER, MEDICARE, SELFPAY ==
[2025-07-15 11:02] LABS: Hematocrit 37.3 % (37.0-47.0); Hemoglobin 12.2 g/dL (12.0-16.0); Mean Corp Hgb Conc. 32.7 g/dL (33.0-37.0); Mean Corpuscular Volume 102.2 fL (81.0-99.0); Nucleated Red Blood Cells % 0 %; Platelet Count 206 10^3/uL (130-400); Red Cell Dist. Width 13.6 % (11.5-14.5)
[2025-07-15 12:16] LABS: Blood Urea Nitrogen 7 mg/dl (7-17); Calcium 8.2 mg/dl (8.4-10.2); Carbon Dioxide 32 mmol/L (22-30); Chloride 102 mmol/L (98-107); Glucose 85 mg/dl (70-99); Potassium 3.3 mmol/L (3.5-5.1); Sodium 137 mmol/L (135-145); eGFR > 60.00
== END ==
LOC: OLABP 10:16
PROVIDERS: ATTENDING PHYSICIAN Family Medicine
DX: Z48.815 Encounter for surgical aftercare following surgery on the digestive system (principal); K31.1 Adult hypertrophic pyloric stenosis; R33.9 Retention of urine, unspecified; K44.0 Diaphragmatic hernia with obstruction, without gangrene; J44.9 Chronic obstructive pulmonary disease, unspecified; I10 Essential (primary) hypertension; E78.5 Hyperlipidemia, unspecified; G93.41 Metabolic encephalopathy; E87.6 Hypokalemia; F03.90 Unspecified dementia, unspecified severity, without behavioral disturbance, psychotic disturbance, mood disturbance, and anxiety; N63.11 Unspecified lump in the right breast, upper outer quadrant
CPT/HCPCS: 36415; 80048; 85025

== ENCOUNTER → 2025-07-24 10:28 | Outpatient (REF) | payer OTHER, MEDICARE, SELFPAY ==
[2025-07-24 11:11] LABS: Blood Urea Nitrogen 9 mg/dl (7-17); Calcium 8.5 mg/dl (8.4-10.2); Carbon Dioxide 31 mmol/L (22-30); Chloride 104 mmol/L (98-107); Glucose 89 mg/dl (70-99); Potassium 3.7 mmol/L (3.5-5.1); Sodium 137 mmol/L (135-145); eGFR > 60.00
== END ==
LOC: OLABP 10:28
PROVIDERS: ATTENDING PHYSICIAN Family Medicine
DX: Z48.815 Encounter for surgical aftercare following surgery on the digestive system (principal); K44.0 Diaphragmatic hernia with obstruction, without gangrene; R33.9 Retention of urine, unspecified; J44.9 Chronic obstructive pulmonary disease, unspecified; E87.6 Hypokalemia; F03.90 Unspecified dementia, unspecified severity, without behavioral disturbance, psychotic disturbance, mood disturbance, and anxiety; N63.11 Unspecified lump in the right breast, upper outer quadrant
CPT/HCPCS: 36415; 80048